=== PATIENT | male | born 1950 | race Caucasian/White ===

== ENCOUNTER → 2017-09-25 14:37 | Outpatient (CLI) | payer MEDICARE, OTHER, SELFPAY ==
--- NOTE | 2017-09-25 14:59 | XR_ITS ---
XR chest 2V HISTORY: ITS.REASON: DYSPNEA ON EXERTION, LYMPHADENOPATHY OF HEAD/NECK ORDERING PHYSICIAN: Seema Lopez PATIENT AGE: 67 years COMPARISON: None available FINDINGS: The cardiomediastinal silhouette and pulmonary vascularity are within normal limits. The lungs are clear without infiltrates, suspicious nodules, or pleural effusions. No acute bony abnormalities. IMPRESSION: Negative chest, no acute finding
[2017-09-25 15:03] LABS: Basophils % 0.5 % (0.1-2.0); Eosinophils # 0.1 K/mm3 (0.0-0.4); Eosinophils % 2.1 % (0.1-12.0); Hematocrit 45.7 % (42.0-52.0); Hemoglobin 15.1 g/dL (14.1-18.0); Lymphocytes # 1.1 K/mm3 (0.7-4.5); Lymphocytes % 17.5 K/mm3 (10-50); Mean Corpuscular Hemoglobin 27.8 pg (27.0-31.2); Mean Corpuscular Volume 84.3 fl (80-94); Monocytes # 0.6 K/mm3 (0.1-1.0); Monocytes % 9.5 % (1.7-9.3); Neutrophils # 4.4 K/mm3 (1.8-7.8); Neutrophils % 70.3 % (37.0-80.0); Platelet Count 269 K/mm3 (142-424); Red Blood Count 5.42 M/mm3 (4.60-6.20); Red Cell Distribution Width 12.5 % (11.5-17.5); White Blood Count 6.3 K/mm3 (4.8-10.8)
[2017-09-25 15:32] LABS: Alanine Aminotransferase 50 U/L (12-78); Albumin Level 4.2 gm/dL (3.4-5.0); Albumin/Globulin Ratio 1.2 (1.1-1.8); Alkaline Phosphatase 160 U/L (46-116); Anion Gap 13.2 mEq/L (5-15); Aspartate Amino Transferase 36 U/L (15-37); Bilirubin,Total 0.4 mg/dL (0.2-1.0); Blood Urea Nitrogen 25 mg/dL (7-18); Carbon Dioxide 26 mmol/L (21.0-32.0); Chloride 106 mmol/L (98-107); Chol/HDL Ratio 2.9 (1-3.5); Cholesterol 143 mg/dL (140-200); Creatinine,Serum 0.97 mg/dL (0.70-1.30); Estimated Glomerular Filt Rate 78 ml/min (>60); GFR (African American) 94 ML/MIN (>60); Globulin 3.5 gm/dl (1.3-3.2); Glucose 110 mg/dL (74-106); HDL Cholesterol 49 mg/dL (27-67); LDL Cholesterol 71 mg/dL (0-130); Potassium 4.2 mmoL/L (3.5-5.1); Sodium 141 mmol/L (136-145); Thyroid Stimulating Hormone 1.42 uIU/ml (0.358-3.740); Total Protein,Serum 7.7 gm/dL (6.4-8.2); Triglycerides 115 mg/dL (30-200); VLDL Cholesterol 23 mg/dL (0-40)
[2017-09-25 16:43] LABS: Erythrocyte Sedimentation Rate 6 mm/hr (0-20)
[2017-09-28 13:13] LABS: B. henselae IgG Negative titer (Neg:<1:320); B. henselae IgM Negative titer (Neg:<1:100); B. quintana IgG Negative titer (Neg:<1:320)
[2017-09-28 15:32] LABS: B. quintana IgM Negative titer (Neg:<1:100)
== END ==
PROVIDERS: PCP Internal Medicine Adolescent Medicine; Visit Provider Nurse Practitioner Family
DX: E11.9 Type 2 diabetes mellitus without complications (principal); R59.1 Generalized enlarged lymph nodes; R06.09 Other forms of dyspnea
CPT/HCPCS: 36415; 71046; 80053; 80061; 83036; 84443; 85025; 85651; 86611

== ENCOUNTER → 2018-01-29 07:44 | Outpatient (CLI) | payer MEDICARE, OTHER, SELFPAY ==
[2018-01-29 08:03] LABS: Creatinine,Urine Random 260 mg/dL (20-320)
[2018-01-29 08:17] LABS: Hemoglobin A1C 6.9 % (0.0-7.0)
[2018-01-29 08:55] LABS: Alanine Aminotransferase 59 U/L (12-78); Albumin Level 4.1 gm/dL (3.4-5.0); Albumin/Globulin Ratio 1.3 (1.1-1.8); Alkaline Phosphatase 134 U/L (46-116); Anion Gap 9.3 mEq/L (5-15); Aspartate Amino Transferase 29 U/L (15-37); Bilirubin,Total 0.8 mg/dL (0.2-1.0); Blood Urea Nitrogen 24 mg/dL (7-18); Calcium 8.8 mg/dL (8.5-10.1); Carbon Dioxide 31 mmol/L (21.0-32.0); Chloride 108 mmol/L (98-107); Chol/HDL Ratio 2.7 (1-3.5); Cholesterol 142 mg/dL (140-200); Creatinine,Serum 1.09 mg/dL (0.70-1.30); Estimated Glomerular Filt Rate 68 ml/min (>60); GFR (African American) 82 ML/MIN (>60); Globulin 3.1 gm/dl (1.3-3.2); Glucose 129 mg/dL (74-106); HDL Cholesterol 53 mg/dL (27-67); LDL Cholesterol 66 mg/dL (0-130); Potassium 4.3 mmoL/L (3.5-5.1); Sodium 144 mmol/L (136-145); Total Protein,Serum 7.2 gm/dL (6.4-8.2); Triglycerides 114 mg/dL (30-200); VLDL Cholesterol 23 mg/dL (0-40)
[2018-01-31 16:50] LABS: Microalbumin, Urine 176.2 ug/mL (Not Estab.)
== END ==
PROVIDERS: Visit Provider Internal Medicine Adolescent Medicine
DX: E11.9 Type 2 diabetes mellitus without complications (principal); E11.69 Type 2 diabetes mellitus with other specified complication
CPT/HCPCS: 36415; 80053; 80061; 82043; 82570; 83036

== ENCOUNTER → 2018-06-04 09:23 | Outpatient (CLI) | payer MEDICARE, OTHER, SELFPAY ==
[2018-06-04 11:26] LABS: Prostate Specific Ag Screen 4.1 ng/mL (0.0-4.0)
== END ==
PROVIDERS: Visit Provider Physician Assistant Medical
DX: Z12.5 Encounter for screening for malignant neoplasm of prostate (principal); R97.20 Elevated prostate specific antigen [PSA]
CPT/HCPCS: 36415; G0103

== ENCOUNTER → 2018-06-08 08:31 | Outpatient (CLI) | payer MEDICARE, OTHER, SELFPAY ==
[2018-06-08 09:35] LABS: Alanine Aminotransferase 66 U/L (12-78); Albumin/Globulin Ratio 1.3 (1.1-1.8); Alkaline Phosphatase 175 U/L (46-116); Anion Gap 13.6 mEq/L (5-15); Aspartate Amino Transferase 38 U/L (15-37); Bilirubin,Total 0.6 mg/dL (0.2-1.0); Blood Urea Nitrogen 15 mg/dL (7-18); Calcium 9.1 mg/dL (8.5-10.1); Carbon Dioxide 28 mmol/L (21.0-32.0); Chloride 104 mmol/L (98-107); Chol/HDL Ratio 3.2 (1-3.5); Cholesterol 158 mg/dL (140-200); Creatinine,Serum 0.99 mg/dL (0.70-1.30); Estimated Glomerular Filt Rate 76 ml/min (>60); GFR (African American) 92 ML/MIN (>60); Globulin 3.2 gm/dl (1.3-3.2); Glucose 152 mg/dL (74-106); HDL Cholesterol 50 mg/dL (27-67); LDL Cholesterol 81 mg/dL (0-130); Potassium 4.6 mmoL/L (3.5-5.1); Sodium 141 mmol/L (136-145); Total Protein,Serum 7.2 gm/dL (6.4-8.2); Triglycerides 136 mg/dL (30-200); VLDL Cholesterol 27 mg/dL (0-40)
[2018-06-08 17:39] LABS: Hemoglobin A1C 7.8 % (0.0-7.0)
== END ==
PROVIDERS: Visit Provider Internal Medicine Adolescent Medicine
DX: E11.9 Type 2 diabetes mellitus without complications (principal); E11.69 Type 2 diabetes mellitus with other specified complication
CPT/HCPCS: 36415; 80053; 80061; 83036

== ENCOUNTER → 2018-07-23 12:26 | Outpatient (POV) | payer MEDICARE, OTHER, SELFPAY | PROVIDERS: Visit Provider Nurse Practitioner Acute Care | DX: Z00.00 Encounter for general adult medical examination without abnormal findings (principal) ==

== ENCOUNTER → 2018-09-03 13:44 | Outpatient (POV) | payer MEDICARE, OTHER, SELFPAY | PROVIDERS: Visit Provider Nurse Practitioner Acute Care | DX: Z00.00 Encounter for general adult medical examination without abnormal findings (principal) ==

== ENCOUNTER → 2018-11-21 10:00 | Outpatient (CLI) | payer MEDICARE, OTHER, SELFPAY ==
--- NOTE | 2018-11-21 10:04 | CT_ITS ---
CT abdomen pelvis wo con CLINICAL INDICATION: ITS.REASON: UMBILLICAL HERNIA, RLQ PAIN ORDERING PHYSICIAN: Seema Lopez APRN PATIENT AGE: 68 years COMPARISON: None TECHNIQUE: Axial images obtained with sagittal and coronal reformats. All CT scans at the facility use one or more dose reduction, viz: automated exposure control, ma/kV adjustment per patient size (including targeted exams where dose is matched to indication, i.e. head), or iterative reconstruction technique. PROCEDURE: Oral Contrast: Redicat IV Contrast: None . FINDINGS: Patchy groundglass densities present in both lower lobes nonspecific and may be inflammatory or infectious. There is diffuse fatty liver infiltration. The gallbladder, spleen, adrenal glands, and pancreas have an unremarkable unenhanced CT appearance. There is a small exophytic hyperdensity along the upper pole the right kidney at 5 mm and may represent a small hyperdense cyst. No renal or ureteral calculi. There is a neck phytic isodensity projecting off the posterior aspect of the left kidney at 19 mm consistent with a cyst. No evidence of appendicitis. There are scattered diverticula within the colon. No evidence of diverticulitis. The prostate is enlarged at 6 x 4.6 cm. There are small bilateral fat-containing inguinal hernias and there is a small umbilical hernia containing fat. No acute bony anomalies are evident. IMPRESSION: 1. Small bilateral fat-containing inguinal hernias and a small umbilical hernia containing fat 2. Unremarkable appendix. No acute appearing renal or ureteral calculi. Probable hyperdense 5 mm right renal cyst and 19 mm left renal cyst 3. Enlarged prostate 4. Fatty liver 5. Patchy groundglass density in the lower lobes on both sides nonspecific and could be inflammatory or infectious. Interstitial lung disease is a consideration as well
== END ==
PROVIDERS: PCP Nurse Practitioner Family; Visit Provider Nurse Practitioner Family
DX: R10.31 Right lower quadrant pain (principal); K42.9 Umbilical hernia without obstruction or gangrene
CPT/HCPCS: 74176

== ENCOUNTER → 2019-04-09 07:33 | Outpatient (CLI) | payer MEDICARE, OTHER, SELFPAY ==
[2019-04-09 08:12] LABS: Basophils % 0.9 % (0.1-2.0); Eosinophils # 0.2 K/mm3 (0.0-0.4); Eosinophils % 4.1 % (0.1-12.0); Hematocrit 46.3 % (42.0-52.0); Hemoglobin 14.2 g/dL (14.1-18.0); Lymphocytes # 1.1 K/mm3 (0.7-4.5); Lymphocytes % 26.3 % (10-50); Mean Corpuscular HGB Conc 30.7 g/dL (31.8-35.4); Mean Corpuscular Hemoglobin 27.2 pg (27.0-31.2); Mean Corpuscular Volume 88.4 fl (80-94); Mean Platelet Volume 8.1 fl (7.4-10.4); Monocytes # 0.5 K/mm3 (0.1-1.0); Monocytes % 11.9 % (1.7-9.3); Neutrophils # 2.4 K/mm3 (1.8-7.8); Neutrophils % 56.8 % (37.0-80.0); Platelet Count 271 K/mm3 (142-424); Red Blood Count 5.23 M/mm3 (4.60-6.20); Red Cell Distribution Width 13.5 % (11.5-17.5); White Blood Count 4.2 K/mm3 (4.8-10.8)
[2019-04-09 09:17] LABS: Thyroid Stimulating Hormone 1.57 uIU/ml (0.358-3.740)
[2019-04-09 09:37] LABS: Alanine Aminotransferase 42 U/L (12-78); Albumin Level 4.1 gm/dL (3.4-5.0); Albumin/Globulin Ratio 1.3 (1.1-1.8); Alkaline Phosphatase 136 U/L (46-116); Anion Gap 12.7 mEq/L (5-15); Aspartate Amino Transferase 34 U/L (15-37); Bilirubin,Total 0.6 mg/dL (0.2-1.0); Blood Urea Nitrogen 26 mg/dL (7-18); Calcium 8.6 mg/dL (8.5-10.1); Carbon Dioxide 27 mmol/L (21.0-32.0); Chloride 104 mmol/L (98-107); Chol/HDL Ratio 2.5 (1-3.5); Cholesterol 124 mg/dL (140-200); Creatinine,Serum 0.87 mg/dL (0.70-1.30); Estimated Glomerular Filt Rate 88 ml/min (>60); GFR (African American) 106 ML/MIN (>60); Globulin 3.1 gm/dl (1.3-3.2); Glucose 109 mg/dL (74-106); HDL Cholesterol 50 mg/dL (27-67); LDL Cholesterol 52 mg/dL (0-130); Potassium 4.7 mmoL/L (3.5-5.1); Prostate Specific Ag, Diagnost 4.76 ng/mL (0.0-4.0); Sodium 139 mmol/L (136-145); Total Protein,Serum 7.2 gm/dL (6.4-8.2); Triglycerides 112 mg/dL (30-200); VLDL Cholesterol 22 mg/dL (0-40)
[2019-04-09 10:18] LABS: Hemoglobin A1C 6.9 % (0.0-7.0)
[2019-04-10 11:11] LABS: Creatinine, Urine 230.1 mg/dL (Not Estab.); Microalbumin, Urine 89.1 ug/mL (Not Estab.)
== END ==
PROVIDERS: Nurse Practitioner Family; Visit Provider Internal Medicine Adolescent Medicine
DX: E11.69 Type 2 diabetes mellitus with other specified complication (principal); E11.9 Type 2 diabetes mellitus without complications; N40.0 Benign prostatic hyperplasia without lower urinary tract symptoms
CPT/HCPCS: 36415; 80053; 80061; 82043; 82570; 83036; 84153; 84443; 85025

== ENCOUNTER → 2019-09-12 13:00 | Outpatient (CLI) | payer MEDICARE, OTHER, SELFPAY | PROVIDERS: Visit Provider Podiatrist | DX: L57.0 Actinic keratosis (principal); L84 Corns and callosities; L98.9 Disorder of the skin and subcutaneous tissue, unspecified | CPT/HCPCS: 87070; 87077; 87205 ==

== ENCOUNTER → 2019-10-10 08:21 | Outpatient (CLI) | payer MEDICARE, OTHER, SELFPAY ==
[2019-10-10 09:34] LABS: Basophils % 0.9 % (0.1-2.0); Eosinophils # 0.2 K/mm3 (0.0-0.4); Eosinophils % 3.8 % (0.1-12.0); Hematocrit 44.2 % (42.0-52.0); Hemoglobin 14.9 g/dL (14.1-18.0); Lymphocytes # 1.5 K/mm3 (0.7-4.5); Lymphocytes % 31.2 % (10-50); Mean Corpuscular HGB Conc 33.7 g/dL (31.8-35.4); Mean Corpuscular Hemoglobin 28.4 pg (27.0-31.2); Mean Corpuscular Volume 84.4 fl (80-94); Mean Platelet Volume 8.1 fl (7.4-10.4); Monocytes # 0.4 K/mm3 (0.1-1.0); Monocytes % 7.9 % (1.7-9.3); Neutrophils # 2.6 K/mm3 (1.8-7.8); Neutrophils % 56.1 % (37.0-80.0); Platelet Count 247 K/mm3 (142-424); Red Blood Count 5.23 M/mm3 (4.60-6.20); Red Cell Distribution Width 12.9 % (11.5-17.5); White Blood Count 4.6 K/mm3 (4.8-10.8)
[2019-10-10 10:37] LABS: Chloride 102 mmol/L (98-107); Potassium 4.3 mmoL/L (3.5-5.1); Sodium 137 mmol/L (136-145)
[2019-10-10 10:39] LABS: Alanine Aminotransferase 62 U/L (12-78); Albumin Level 4.2 g/dl (3.5-5.0); Albumin/Globulin Ratio 1.7 (1.1-1.8); Alkaline Phosphatase 139 U/L (38-126); Aspartate Amino Transferase 52 U/L (17-59); Bilirubin,Total 0.5 mg/dl (0.2-1.3); Blood Urea Nitrogen 24 mg/dl (9-20); Estimated Glomerular Filt Rate 84 ml/min (>60); GFR (African American) 102 ML/MIN (>60); Globulin 2.5 g/dL (1.3-3.2); Total Protein,Serum 6.7 g/dl (6.3-8.2)
[2019-10-10 10:40] LABS: Anion Gap 11.3 mEq/L (5-15); Calcium 9.4 mg/dl (8.4-10.2); Carbon Dioxide 28 mmol/L (22.0-30.0); Chol/HDL Ratio 2.4 (1-3.5); Cholesterol 130 mg/dl (140-200); Glucose 135 mg/dl (74-100); HDL Cholesterol 55 mg/dl (40-60); Triglycerides 104 mg/dl (30-150); VLDL Cholesterol 21 mg/dL (0-40)
[2019-10-10 10:51] LABS: Direct LDL Cholesterol 76.51 mg/dL (100-129)
[2019-10-10 11:11] LABS: Prostate Specific Ag Screen 3.9 ng/ml (0.0-4.0)
[2019-10-10 11:17] LABS: Hemoglobin A1C 6.7 % (4.0-6.0)
[2019-10-11 09:19] LABS: Creatinine, Urine 181.7 mg/dL (Not Estab.); Microalbumin, Urine 64.8 ug/mL (Not Estab.)
== END ==
PROVIDERS: Visit Provider Nurse Practitioner Family
DX: E11.69 Type 2 diabetes mellitus with other specified complication; N40.0 Benign prostatic hyperplasia without lower urinary tract symptoms; R97.20 Elevated prostate specific antigen [PSA]; Z12.5 Encounter for screening for malignant neoplasm of prostate; Z79.84 Long term (current) use of oral hypoglycemic drugs
CPT/HCPCS: 36415; 80053; 80061; 82043; 82570; 83036; 85025; G0103

== ENCOUNTER → 2020-01-14 07:58 | Outpatient (POV) | payer MEDICARE, OTHER, SELFPAY | PROVIDERS: PCP Internal Medicine Adolescent Medicine; Visit Provider Dermatology | DX: Z00.00 Encounter for general adult medical examination without abnormal findings (principal) ==

== ENCOUNTER → 2020-03-31 07:47 | Outpatient (CLI) | payer MEDICARE, OTHER, SELFPAY ==
[2020-03-31 08:56] LABS: Basophils % 0.8 % (0.1-2.0); Eosinophils # 0.2 K/mm3 (0.0-0.4); Hematocrit 47.9 % (42.0-52.0); Hemoglobin 15.5 g/dL (14.1-18.0); Lymphocytes # 1.5 K/mm3 (0.7-4.5); Lymphocytes % 32.5 % (10-50); Mean Corpuscular HGB Conc 32.5 g/dL (31.8-35.4); Mean Corpuscular Hemoglobin 28.7 pg (27.0-31.2); Mean Corpuscular Volume 88.5 fl (80-94); Mean Platelet Volume 7.9 fl (7.4-10.4); Monocytes # 0.4 K/mm3 (0.1-1.0); Monocytes % 8.7 % (1.7-9.3); Neutrophils # 2.5 K/mm3 (1.8-7.8); Neutrophils % 52.9 % (37.0-80.0); Platelet Count 239 K/mm3 (142-424); Red Blood Count 5.41 M/mm3 (4.60-6.20); Red Cell Distribution Width 12.5 % (11.5-17.5); White Blood Count 4.7 K/mm3 (4.8-10.8)
[2020-03-31 10:29] LABS: Alanine Aminotransferase 61 U/L (12-78); Albumin Level 4.4 g/dl (3.5-5.0); Albumin/Globulin Ratio 1.6 (1.1-1.8); Alkaline Phosphatase 150 U/L (38-126); Anion Gap 10.8 mEq/L (5-15); Aspartate Amino Transferase 49 U/L (17-59); Bilirubin,Total 0.6 mg/dl (0.2-1.3); Blood Urea Nitrogen 29 mg/dl (9-20); Calcium 9.9 mg/dl (8.4-10.2); Carbon Dioxide 31 mmol/L (22.0-30.0); Chloride 102 mmol/L (98-107); Chol/HDL Ratio 2.1 (1-3.5); Cholesterol 127 mg/dl (140-200); Estimated Glomerular Filt Rate 75 ml/min (>60); GFR (African American) 90 ML/MIN (>60); Globulin 2.7 g/dL (1.3-3.2); Glucose 121 mg/dl (74-100); HDL Cholesterol 60 mg/dl (40-60); Potassium 4.8 mmoL/L (3.5-5.1); Sodium 139 mmol/L (136-145); Total Protein,Serum 7.1 g/dl (6.3-8.2); Triglycerides 109 mg/dl (30-150); VLDL Cholesterol 22 mg/dL (0-40)
[2020-03-31 10:40] LABS: Direct LDL Cholesterol 62.32 mg/dL (100-129)
[2020-03-31 10:44] LABS: Hemoglobin A1C 7.1 % (4.0-6.0)
[2020-03-31 11:00] LABS: Prostate Specific Ag Screen 3.1 ng/ml (0.0-4.0)
[2020-03-31 14:02] LABS: Microalbumin/Creatinine Ratio 72.9
[2020-03-31 14:06] LABS: Creatinine,Urine Random 178 mg/dL (Not Estab.)
== END ==
PROVIDERS: Visit Provider Nurse Practitioner Family
DX: E11.9 Type 2 diabetes mellitus without complications (principal); E11.69 Type 2 diabetes mellitus with other specified complication; Z79.84 Long term (current) use of oral hypoglycemic drugs; R97.20 Elevated prostate specific antigen [PSA]; Z12.5 Encounter for screening for malignant neoplasm of prostate
CPT/HCPCS: 36415; 80053; 80061; 82043; 82570; 83036; 85025; G0103

== ENCOUNTER → 2020-07-21 07:54 | Outpatient (POV) | payer MEDICARE, OTHER, SELFPAY | PROVIDERS: Visit Provider Dermatology | DX: Z00.00 Encounter for general adult medical examination without abnormal findings (principal) ==

== ENCOUNTER → 2020-08-04 08:24 | Outpatient (CLI) | payer MEDICARE, OTHER, SELFPAY ==
[2020-08-04 09:19] LABS: Basophils % 0.6 % (0.1-2.0); Eosinophils # 0.2 K/mm3 (0.0-0.4); Eosinophils % 2.7 % (0.1-12.0); Hematocrit 49.4 % (42.0-52.0); Lymphocytes # 1.4 K/mm3 (0.7-4.5); Lymphocytes % 20.3 % (10-50); Mean Corpuscular HGB Conc 32.3 g/dL (31.8-35.4); Mean Corpuscular Hemoglobin 28.6 pg (27.0-31.2); Mean Corpuscular Volume 88.4 fl (80-94); Monocytes # 0.6 K/mm3 (0.1-1.0); Monocytes % 8.1 % (1.7-9.3); Neutrophils # 4.6 K/mm3 (1.8-7.8); Neutrophils % 68.3 % (37.0-80.0); Platelet Count 253 K/mm3 (142-424); Red Blood Count 5.58 M/mm3 (4.60-6.20); Red Cell Distribution Width 13.4 % (11.5-17.5); White Blood Count 6.8 K/mm3 (4.8-10.8)
[2020-08-04 09:26] LABS: Hemoglobin A1C 6.3 % (4.0-6.0)
[2020-08-04 12:27] LABS: Alanine Aminotransferase 36 U/L (12-78); Albumin Level 4.7 g/dl (3.5-5.0); Albumin/Globulin Ratio 1.7 (1.1-1.8); Alkaline Phosphatase 133 U/L (38-126); Anion Gap 9.7 mEq/L (5-15); Aspartate Amino Transferase 40 U/L (17-59); Bilirubin,Total 0.7 mg/dl (0.2-1.3); Blood Urea Nitrogen 27 mg/dl (9-20); Calcium 9.7 mg/dl (8.4-10.2); Carbon Dioxide 29 mmol/L (22.0-30.0); Chloride 105 mmol/L (98-107); Chol/HDL Ratio 2.2 (1-3.5); Cholesterol 141 mg/dl (140-200); Estimated Glomerular Filt Rate 74 ml/min (>60); GFR (African American) 90 ML/MIN (>60); Globulin 2.7 g/dL (1.3-3.2); Glucose 128 mg/dl (74-100); HDL Cholesterol 64 mg/dl (40-60); Potassium 4.7 mmoL/L (3.5-5.1); Sodium 139 mmol/L (136-145); Total Protein,Serum 7.4 g/dl (6.3-8.2); Triglycerides 109 mg/dl (30-150); VLDL Cholesterol 22 mg/dL (0-40)
[2020-08-04 12:38] LABS: Direct LDL Cholesterol 56.52 mg/dL (100-129)
[2020-08-04 12:59] LABS: Prostate Specific Ag Screen 3.4 ng/ml (0.0-4.0)
== END ==
PROVIDERS: Visit Provider Internal Medicine Adolescent Medicine
DX: E11.9 Type 2 diabetes mellitus without complications (principal); Z79.84 Long term (current) use of oral hypoglycemic drugs; Z12.5 Encounter for screening for malignant neoplasm of prostate
CPT/HCPCS: 36415; 80053; 80061; 83036; 85025; G0103

== ENCOUNTER → 2020-11-24 08:07 | Outpatient (POV) | payer MEDICARE, OTHER, SELFPAY | PROVIDERS: Visit Provider Dermatology | DX: Z00.00 Encounter for general adult medical examination without abnormal findings (principal) ==

== ENCOUNTER → 2021-01-26 07:04 | Outpatient (CLI) | payer MEDICARE, OTHER, SELFPAY ==
[2021-01-26 07:57] LABS: Basophils % 0.6 % (0.1-2.0); Eosinophils # 0.1 K/mm3 (0.0-0.4); Hematocrit 46.4 % (42.0-52.0); Hemoglobin 14.5 g/dL (14.1-18.0); Lymphocytes # 1.4 K/mm3 (0.7-4.5); Lymphocytes % 23.9 % (10-50); Mean Corpuscular HGB Conc 31.4 g/dL (31.8-35.4); Mean Corpuscular Hemoglobin 27.3 pg (27.0-31.2); Mean Corpuscular Volume 87.2 fl (80-94); Mean Platelet Volume 7.9 fl (7.4-10.4); Monocytes # 0.5 K/mm3 (0.1-1.0); Monocytes % 8.7 % (1.7-9.3); Neutrophils # 3.8 K/mm3 (1.8-7.8); Neutrophils % 64.8 % (37.0-80.0); Platelet Count 234 K/mm3 (142-424); Red Blood Count 5.32 M/mm3 (4.60-6.20); Red Cell Distribution Width 13.5 % (11.5-17.5); White Blood Count 5.8 K/mm3 (4.8-10.8)
[2021-01-26 08:32] LABS: Chloride 105 mmol/L (98-107)
[2021-01-26 08:33] LABS: Potassium 4.9 mmoL/L (3.5-5.1); Sodium 140 mmol/L (136-145)
[2021-01-26 08:35] LABS: Alanine Aminotransferase 40 U/L (12-78); Anion Gap 10.9 mEq/L (5-15); Aspartate Amino Transferase 41 U/L (17-59); Blood Urea Nitrogen 26 mg/dl (9-20); Carbon Dioxide 29 mmol/L (22.0-30.0); Estimated Glomerular Filt Rate 74 ml/min (>60); GFR (African American) 90 ML/MIN (>60)
[2021-01-26 08:36] LABS: Albumin Level 4.4 g/dl (3.5-5.0); Albumin/Globulin Ratio 1.7 (1.1-1.8); Alkaline Phosphatase 129 U/L (38-126); Bilirubin,Total 0.7 mg/dl (0.2-1.3); Calcium 9.2 mg/dl (8.4-10.2); Chol/HDL Ratio 2.7 (1-3.5); Cholesterol 175 mg/dl (140-200); Globulin 2.6 g/dL (1.3-3.2); Glucose 124 mg/dl (74-100); HDL Cholesterol 66 mg/dl (40-60); Triglycerides 113 mg/dl (30-150); VLDL Cholesterol 23 mg/dL (0-40)
[2021-01-26 08:42] LABS: Creatinine,Urine Random 181 mg/dL (Not Estab.); Microalbumin/Creatinine Ratio 40.3
[2021-01-26 08:49] LABS: Direct LDL Cholesterol 84.42 mg/dL (100-129)
[2021-01-26 09:10] LABS: Hemoglobin A1C 6.9 % (4.0-6.0)
== END ==
PROVIDERS: Visit Provider Nurse Practitioner Family
DX: E11.9 Type 2 diabetes mellitus without complications (principal); N40.0 Benign prostatic hyperplasia without lower urinary tract symptoms; Z79.84 Long term (current) use of oral hypoglycemic drugs
CPT/HCPCS: 36415; 80053; 80061; 82043; 82570; 83036; 85025

== ENCOUNTER → 2021-03-15 09:49 | Outpatient (CLI) | payer MEDICARE, OTHER, SELFPAY ==
--- NOTE | 2021-03-15 09:53 | XR_ITS ---
PROCEDURE: XR FOOT WT BEARING LT 3V CLINICAL INDICATION: toe injury COMPARISON: No exams were available for comparison FINDINGS: No fracture or dislocation. No lytic or blastic change. There is normal mineralization. Osteoarthritic changes are present. There is pes planus the small calcaneal spur noted osteoarthritic changes are present at the talonavicular joint. Bony hypertrophy versus ununited ossification center noted at the cuboid/5th metatarsal junction. Other findings:Small calcified Achilles enthesophyte IMPRESSION: Degenerative changes as described Dictated by: Rod Chavez MD 03/15/2021 14:01 Rod Chavez MD in [facility] 03/15/2021 14:01
== END ==
PROVIDERS: PCP Internal Medicine Adolescent Medicine; Visit Provider Podiatrist
DX: M79.673 Pain in unspecified foot (principal)
CPT/HCPCS: 73630

== ENCOUNTER → 2021-03-30 08:46 | Outpatient (POV) | payer MEDICARE, OTHER, SELFPAY | PROVIDERS: Visit Provider Dermatology | DX: Z00.00 Encounter for general adult medical examination without abnormal findings (principal) ==

== ENCOUNTER → 2021-07-16 07:10 | Outpatient (CLI) | payer MEDICARE, OTHER, SELFPAY ==
[2021-07-16 09:27] LABS: Alanine Aminotransferase 73 U/L (12-78); Albumin Level 4.4 g/dl (3.5-5.0); Alkaline Phosphatase 141 U/L (38-126); Anion Gap 11.3 mEq/L (5-15); Aspartate Amino Transferase 78 U/L (17-59); Bilirubin,Total 0.8 mg/dl (0.2-1.3); Blood Urea Nitrogen 17 mg/dl (9-20); Calcium 9.3 mg/dl (8.4-10.2); Carbon Dioxide 29 mmol/L (22.0-30.0); Chloride 101 mmol/L (98-107); Chol/HDL Ratio 2.7 (1-3.5); Cholesterol 133 mg/dl (140-200); Estimated Glomerular Filt Rate 96 ml/min (>60); GFR (African American) 116 ML/MIN (>60); Globulin 2.2 g/dL (1.3-3.2); Glucose 205 mg/dl (74-100); HDL Cholesterol 49 mg/dl (40-60); Potassium 4.3 mmoL/L (3.5-5.1); Sodium 137 mmol/L (136-145); Total Protein,Serum 6.6 g/dl (6.3-8.2); Triglycerides 127 mg/dl (30-150); VLDL Cholesterol 25 mg/dL (0-40)
[2021-07-16 09:57] LABS: Prostate Specific Ag Screen 3.8 ng/ml (0.0-4.0)
[2021-07-16 16:19] LABS: Hemoglobin A1C 9.8 % (4.0-6.0)
== END ==
PROVIDERS: Visit Provider Nurse Practitioner Family
DX: E11.69 Type 2 diabetes mellitus with other specified complication; Z12.5 Encounter for screening for malignant neoplasm of prostate; Z79.84 Long term (current) use of oral hypoglycemic drugs
CPT/HCPCS: 36415; 80053; 80061; 83036; G0103

== ENCOUNTER 2021-09-18 10:25 | Emergency (ER) | payer MEDICARE, OTHER, SELFPAY ==
[2021-09-18 10:26] VITALS: BP 126/68; PULSE 72; RESP 18; TEMP 37; O2SAT 98; BMI 32.3
--- NOTE | 2021-09-18 10:46 | XR_ITS ---
PROCEDURE INFORMATION: Exam: XR Left Hip Exam date and time: 09/18/2021 10:52 AM Age: 71 years old Clinical indication: Hip pain; Left hip; Additional info: Left hip pain/ no injury but trouble walking TECHNIQUE: Imaging protocol: XR Left hip. Views: 2 or 3 views hip with pelvis when performed. COMPARISON: ABDPELWO CT abdomen pelvis wo con 11/21/2018 10:21 AM FINDINGS: Bones/joints: Unremarkable. No acute fracture. Soft tissues: Unremarkable. IMPRESSION: No acute findings.
--- NOTE | 2021-09-18 10:49 | HMH.EDGENADL ---
ED Disposition Clinical Impression: Radiculopathy Qualifiers: Spinal region: lumbosacral Qualified Code(s): M54.17 - Radiculopathy, lumbosacral region Disposition: Home, Self-Care Condition on Discharge: Good Instructions: DI for Low Back Pain Prescriptions: Oxycodone HCl [Oxycodone 5mg tab (IR)] 5 mg PO Q6 PRN 2 Days #8 tab PRN Reason: Severe Pain Referrals: Todd Vidal MD [Primary Care Provider] - - Critical Care Critical Care Time: No Attestation: On 09/18/21, the high probability of a clinically significant, sudden or life threatening deterioration of the following system(s) required my full and direct attention, intervention and personal management. The time I documented below is in addition to time spent performing reported procedures but includes the following listed in this critical care notation. Medical Decision Making - Medical Records Medical records reviewed: Yes: I reviewed the patient's medical records. - Kyle Inquiry Pt receiving controlled substance: No Vital Signs: 09/18/21 10:26 Temperature 98.6 F Temperature Source Oral Pulse Rate [Brachial] 72 Respiratory Rate 18 Blood Pressure [Right Arm] 126/68 Blood Pressure Mean [Right Arm] 87 Blood Pressure Position [Right Arm] Sitting 02 Sat by Pulse Oximetry 98 Oxygen Delivery Method Room Air Orders (Tests/Meds): ED MEDICATIONS Discontinued Medications Generic Name Dose Route Start Last Admin Trade Name Freq PRN Reason Stop Dose Admin Acetaminophen 650 mg 09/18/21 10:48 09/18/21 11:14 Acetaminophen 500mg Tab PO 09/18/21 10:49 Not Given ONCE ONE Dexamethasone 10 mg 09/18/21 10:47 09/18/21 11:11 Dexamethasone 4mg Tablet PO 09/18/21 10:48 10 mg ONCE ONE Administration Ibuprofen 400 mg 09/18/21 10:48 09/18/21 11:14 Ibuprofen 400 Mg Tablet PO 09/18/21 10:49 Not Given ONCE ONE Oxycodone HCl 5 mg 09/18/21 10:47 09/18/21 11:13 Oxycodone 5mg Immediate Release Tablet PO 09/18/21 10:48 Not Given ONCE ONE Oxycodone/Acetaminophen 1 each 09/18/21 11:13 09/18/21 11:14 Oxycodone 5mg W/Apap 325mg Tablet PO 09/18/21 11:14 1 each ONCE ONE Administration - Radiology Data #1 Image(s): Hip Image Reviewed: Yes I reviewed the patient's radiology results, Yes I reviewed the patient's radiology image FINDINGS: Bones/joints: Unremarkable. No acute fracture. Soft tissues: Unremarkable. IMPRESSION: No acute findings. Medical Decision Narrative: 71-year-old male with past medical history of diabetes presenting to the ED with lower back pain, left leg pain. Differential diagnoses include vertebral fracture, sciatica, radiculopathy, herniated disc, skeletal pain, hip laxity. Given this work-up will include x-ray of the left hip, physical exam. Vital signs are currently stable. Labs are not currently indicated. Patient was given 10 mg oral Decadron, 5 mg oral oxycodone, Tylenol and Motrin for analgesia. He has a positive straight leg test which is consistent with sciatica/radiculopathy. No other red flag symptoms. Reassess after x-ray and medication administration. X-ray negative for acute osseous abnormality. Patient feels much better after being treated for his pain. At this point he is okay for discharge, will provide short course of oxycodone. Additionally instructed patient to take Tylenol Motrin, if he has persisting symptoms he will follow-up with his PCP or return to this ED. General Adult HPI - General Chief complaint: Back Pain/Injury Stated complaint: left leg pain Time Seen by Provider: 09/18/21 10:49 Mode of Arrival: Wheelchair Source of Information: Patient, Spouse Limitations: No Limitations Description of Symptoms (Recalled from ER Triage Doc. by RN): TO ED PER [facility] CAR WITH C/O LT SIDE BACK PAIN RADIATING DOWN LT LEG STARTING YESTERDAY. PT DENIES ANY KNOWN INJURY. PT DENIES ANY INCONTINENCE OF BOWEL OR BLADDER. - History of Present Illness HPI malka
--- NOTE | 2021-09-18 10:55 | PC.NURSE ---
Pt in room on bed, spouse in room
[2021-09-18 12:18] VITALS: BP 121/74; PULSE 75; RESP 16; TEMP 36.6; O2SAT 98
--- NOTE | 2021-09-18 13:30 | PC.NURSE ---
script had to be written on paper script, billy and pt both advised of this.
== END 2021-09-18 12:20 | disposition home or self-care (01) ==
PROVIDERS: Emergency Provider Emergency Medicine; PCP Internal Medicine Adolescent Medicine
DX: M54.17 Radiculopathy, lumbosacral region (principal); E11.9 Type 2 diabetes mellitus without complications; K21.9 Gastro-esophageal reflux disease without esophagitis; I10 Essential (primary) hypertension; E78.5 Hyperlipidemia, unspecified
CPT/HCPCS: 73502; 99283

== ENCOUNTER → 2021-09-20 11:45 | Outpatient (CLI) | payer MEDICARE, OTHER, SELFPAY ==
--- NOTE | 2021-09-20 11:51 | XR_ITS ---
FINAL REPORT CLINICAL HISTORY: LT SIDED SCIATICA FINDINGS: 4 views were obtained. There is no acute fracture. There is no malalignment. There is moderate disc space narrowing at L4-5 and L5-S1. IMPRESSION: Moderate disc space narrowing at L4-5 and L5-S1. Reviewed, Interpreted and Dictated by To Delgado MD Transcribed by Javed Lazaro Authenticated by To Delgado MD on 09/20/2021 02:30:[address] [facility]
== END ==
PROVIDERS: PCP Internal Medicine Adolescent Medicine; Visit Provider Nurse Practitioner Family
DX: M54.32 Sciatica, left side (principal)
CPT/HCPCS: 72110

== ENCOUNTER → 2021-09-27 16:33 | Outpatient (CLI) | payer MEDICARE, OTHER, SELFPAY ==
--- NOTE | 2021-09-27 16:36 | MR_ITS ---
PROCEDURE INFORMATION: Exam: MR Lumbar Spine Without Contrast Exam date and time: 09/27/2021 4:52 PM Age: 71 years old Clinical indication: Low back pain; Additional info: Acute lt sided low back pain, lt sided sciatica. Lt sided lbp with lt leg pain to ankle. Symptoms x1wk. No injury or trauma. TECHNIQUE: Imaging protocol: Multiplanar magnetic resonance images of the lumbar spine without intravenous contrast. COMPARISON: CR XR LUMBAR SPINE MIN 4V 09/20/2021 12:10 PM FINDINGS: Prominent extrarenal pelvis on the right. Renal cyst on the left. alignment is grossly normal. signal intensity within the bone marrow is normal. conus terminates at the mid aspect of L1. Soft tissues are unremarkable. Mild annular disc bulge and/or disc protrusions L3-L4 through L5-S1 Reactive degenerative endplate changes L4 and L5 No marrow edema Neural foraminal narrowing L3-L4 T12-L1: Central canal and neural foramina are widely patent. L1-L2: Central canal and neural foramina are widely patent. L2-L3: Broad-based annular disc bulge effaces the anterior aspect of the thecal sac mildly so. Central canal and neural foramina are widely patent. L3-L4: Broad-based annular disc bulge with a left paracentral and lateral disc protrusion. Disc is adjacent to the anterior L4 nerve roots. Central canal and right neural foramina are patent. Soft tissue prominence within the left neural foramina possibly a nerve root lesion or bifid nerve root. Follow-up with fat saturated T1 weighted sequences pre and post contrast. L4-L5: Broad-based annular disc bulge lateralizing to the right greater than left. Narrowing of the right neural foramina inferiorly. Disc is adjacent to the anterior L5 nerve roots within the anterolateral recess. L5-S1: Broad-based annular disc bulge lateralizing to the left greater than right. Paucity of fat about the L5 nerve root laterally on the left. IMPRESSION: Degenerative disc disease as described above. Soft tissue prominence within the left neural foramina possibly a nerve root lesion or bifid nerve root. Follow-up with fat saturated T1 weighted sequences pre and post contrast.
== END ==
PROVIDERS: PCP Internal Medicine Adolescent Medicine; Visit Provider Nurse Practitioner Family
DX: M54.42 Lumbago with sciatica, left side (principal)
CPT/HCPCS: 72148; 76376

== ENCOUNTER → 2021-10-01 08:12 | Outpatient (CLI) | payer MEDICARE, OTHER, SELFPAY ==
[2021-10-01 09:47] LABS: Blood Urea Nitrogen 22 mg/dl (9-20); Estimated Glomerular Filt Rate 84 ml/min (>60); GFR (African American) 101 ML/MIN (>60)
== END ==
PROVIDERS: Visit Provider Nurse Practitioner Family
DX: M54.42 Lumbago with sciatica, left side (principal)
CPT/HCPCS: 36415; 82565; 84520

== ENCOUNTER → 2021-10-08 07:56 | Outpatient (CLI) | payer MEDICARE, OTHER, SELFPAY ==
--- NOTE | 2021-10-08 08:01 | MR_ITS ---
FINAL REPORT CLINICAL HISTORY: ACUTE LEFT SIDED LOW BACK PAIN NUMBNESS IN LEG FROM KNEE TO ANKLE , NO INJURY / TRAUMA , NO SURGERY 20 ML OF PROHANCE GIVEN COMPARISON: 09/27/2021 FINDINGS: Multiplanar MR imaging of the lumbar spine was performed without and with contrast. On the sagittal T2-weighted images, disc degeneration is seen at multiple levels. There is mild retrolisthesis of L3 on 4. There are endplate changes at several levels. There is no evidence of fracture. The conus is seen at approximately the L1 level and has an unremarkable appearance. L1-2: An annular bulge is present. No significant canal stenosis or neuroforaminal narrowing is seen. L2-3: An annular bulge is present. There is mild right neural foraminal narrowing. L3-4: An annular bulge is present. There is new left foraminal soft tissue extending superiorly measuring 2.5 cm in height with peripheral contrast enhancement, favor sequestered disc fragment or hematoma over other etiologies. There is mild right and moderate left neural foraminal narrowing. L4-5: An annular bulge is present. Facet arthropathy and osteophytes are present. There is moderate right and mild left neural foraminal narrowing. L5-S1: An annular bulge is present. Facet arthropathy and osteophytes are present. There is a central disc protrusion which contacts the S1 nerve roots. There is mild bilateral neural foraminal narrowing. IMPRESSION: Multilevel mild degenerative disc disease and spondylosis with areas of neural foraminal narrowing as described. New left foraminal soft tissue at L3-4, favor to represent a sequestered disc fragment or hematoma over other etiologies. Follow-up MRI may be helpful. Central disc protrusion at L5-S1 contacts the S1 nerve roots. Reviewed, Interpreted and Dictated by Eddie Coleman III, MD Transcribed by Terese Johnson Authenticated by Eddie Coleman III, MD on 10/08/2021 11:11:49 AM [facility]
== END ==
PROVIDERS: PCP Internal Medicine Adolescent Medicine; Visit Provider Nurse Practitioner Family
DX: M54.42 Lumbago with sciatica, left side (principal)
CPT/HCPCS: 72158; 76376; A9576

== ENCOUNTER → 2021-12-14 08:10 | Outpatient (POV) | payer MEDICARE, OTHER, SELFPAY | PROVIDERS: Visit Provider Dermatology | DX: Z00.00 Encounter for general adult medical examination without abnormal findings (principal) ==

== ENCOUNTER → 2022-06-03 13:36 | Outpatient (CLI) | payer MEDICARE, OTHER, SELFPAY ==
--- NOTE | 2022-06-03 13:40 | US_ITS ---
FINAL REPORT TECHNIQUE: Real-time grayscale and color ultrasound of the soft tissues of the neck was performed. CLINICAL HISTORY: CERVICAL ADENOPATHY FINDINGS: Ultrasound images of the soft tissues of the neck were obtained. No mass or fluid collection identified at the area of interest. No significant adenopathy is seen. IMPRESSION: No mass or fluid collection at the area of interest. Reviewed, Interpreted and Dictated by To Delgado MD Transcribed by Javed Lazaro Authenticated and [facility]
== END ==
PROVIDERS: PCP Internal Medicine Adolescent Medicine; Visit Provider Nurse Practitioner Family
DX: R59.0 Localized enlarged lymph nodes (principal)
CPT/HCPCS: 76536

== ENCOUNTER → 2022-12-21 14:26 | Outpatient (CLI) | payer MEDICARE, OTHER, SELFPAY | PROVIDERS: PCP Internal Medicine Adolescent Medicine; Visit Provider Specialist | DX: G47.33 Obstructive sleep apnea (adult) (pediatric) (principal); R06.83 Snoring | CPT/HCPCS: G0399 ==

== ENCOUNTER → 2023-05-30 10:36 | Outpatient (POV) | payer MEDICARE, OTHER, SELFPAY | PROVIDERS: PCP Internal Medicine Adolescent Medicine; Visit Provider Dermatology | DX: Z00.00 Encounter for general adult medical examination without abnormal findings (principal) ==

== ENCOUNTER 2023-08-01 08:55 | Outpatient (POV) | payer MEDICARE, OTHER, SELFPAY | END 2023-08-01 23:59 | disposition home or self-care (01) | LOC: SC 08:56 | PROVIDERS: PCP Internal Medicine Adolescent Medicine; Visit Provider Dermatology | DX: Z00.00 Encounter for general adult medical examination without abnormal findings (principal) ==

== ENCOUNTER 2024-02-11 08:06 | Emergency (ER) | payer MEDICARE, OTHER, SELFPAY ==
[2024-02-11 08:20] VITALS: BP 104/88; PULSE 64; RESP 20; TEMP 36.7; O2SAT 96; BMI 32.3
--- NOTE | 2024-02-11 08:30 | EXP.UTC ---
Discharge Plan Disposition Patient Disposition: Home, Self-Care Condition: Good Prescriptions Prescriptions: New methylprednisolone 4 mg Tablets,Dose Pack 4 mg PO DIRECTED 6 Days Qty: 21 0RF Rx Instructions: Take 1 pack as directed for 6 days guaifenesin [Mucinex] 600 mg tablet extended release 12hr 600 - 1,200 mg PO BIDP PRN (Reason: Congestion) Qty: 30 0RF Paxlovid 300 mg (150 mg x 2)-100 mg tablets,dose pack See Rx Instructions .ROUTE .COMPLEX Qty: 30 0RF Rx Instructions: take TWO 150 mg tablets of nirmatrelvir with ONE 100 mg tablet of ritonavir twice daily for 5 days No Action atorvastatin 20 mg tablet 20 mg PO DAILY Patient Comments: TAKE 1 TABLET BY MOUTH ONCE DAILY FOR 90 DAYS citalopram 40 mg tablet 40 mg PO DAILY Patient Comments: TAKE 1 TABLET BY MOUTH ONCE DAILY metformin 1,000 mg tablet 1,000 mg PO BID Patient Comments: TAKE 1 TABLET BY MOUTH TWICE DAILY diclofenac sodium 75 mg tablet,delayed release (DR/EC) 75 mg PO DAILY lisinopril 5 mg tablet 5 mg PO DAILY Patient Comments: TAKE 1 TABLET BY MOUTH ONCE DAILY Jardiance 25 mg tablet 25 mg PO DAILY Patient Comments: TAKE 1 TABLET BY MOUTH ONCE DAILY IN THE MORNING FOR 90 DAYS Referrals Follow up/Referrals: Todd Vidal MD [Primary Care Provider] - See instructions Activity Restrictions/Add. Instructions Additional Instructions/Restrictions: Drink plenty of fluids. Take tylenol for pain or fever. Take the medications as directed. Follow up with your regular doctor. GO TO THE ER FOR ANY WORSENING SYMPTOMS Clinical Impressions Clinical Impression: COVID-19 Instructions Patient Instructions: Coronavirus Disease 2019, Preventing the Spread of Coronavirus Discharge Instructions Print Language Print Language: Chadian Discharge ED Provider: Donald Bernardo [facility] General Stated complaint: covid, fever, body aches Time Seen by Provider: 02/11/24 08:30 History of Present Illness Provider Complaint: He states that has tested positive on a home covid-19 test. He came in today to ask to be prescribed paxlovid. He denies shortness of breath. Related Data Home Medications ?Medication ?Instructions ?Recorded ?Confirmed atorvastatin 20 mg tablet 20 mg PO DAILY 02/11/24 02/11/24 citalopram 40 mg tablet 40 mg PO DAILY 02/11/24 02/11/24 diclofenac sodium 75 mg 75 mg PO DAILY 02/11/24 02/11/24 tablet,delayed release empagliflozin 25 mg tablet 25 mg PO DAILY 02/11/24 02/11/24 (Jardiance) lisinopril 5 mg tablet 5 mg PO DAILY 02/11/24 02/11/24 metformin 1,000 mg tablet 1,000 mg PO BID 02/11/24 02/11/24 Previous Rx's ?Medication ?Instructions ?Recorded guaifenesin 600 mg tablet, 600 - 1,200 mg (1 - 2 x 600 mg) PO 02/11/24 extended release 12 hr (Mucinex) BIDP PRN Congestion #30 tabs methylprednisolone 4 mg tablets in 4 mg PO DIRECTED 6 days #21 tabs 02/11/24 a dose pack nirmatrelvir 300 mg (150 mg See Rx Instructions PO .COMPLEX 02/11/24 x2)-ritonavir 100 mg tablet,dose #30 tabs pack (Paxlovid) Allergies Allergy/AdvReac Type Severity Reaction Status Date / Time No Known Allergies Allergy Verified 06/21/23 07:34 [facility] Disclaimer: The information contained in this section may have been updated after the patient was seen, as this information can be updated by other users. Social History Smoking Status: Never smoker alcohol intake: never substance use type: denies use current occupational status: retired Travel in the last 8 weeks: None household members: family housing: house marital status: ROS Obtained: Yes All systems reviewed & no additional complaints except as documented Constitutional Constitutional: Reports poor appetite Eyes Eyes: Reports system reviewed and no additional complaints, except as documented ENT Ears, Nose, Mouth, and Throat: Reports as per HPI Cardiovascular Cardiovascular: Reports system reviewed and no additional complaints, except as documented and Denies chest pain Respiratory Respiratory: Denies shortness of breath, Denies chest congestion, Reports cough, Denies stridor and Denies wheezing Gastrointestinal Gastrointestingal: Reports system reviewed and no additional complaints, except as documented; Denies abdominal pain, diarrhea or vomiting Musculoskeletal Musculoskeletal: Reports system reviewed and no additional complaints, except as documented and Denies arthralgias Integumentary/Breasts Skin/Breast: Reports system reviewed and no additional complaints, except as documented and Denies rash Neurologic Neurologic: Denies paresthesias Allergic/Immunologic Allergic/Immunologic: Denies wheezing Physical Exam General General appearance: alert and in no apparent distress Eye Eye exam: Present normal appearance, PERRL and EOMI ENT ENT exam: Present mucous membranes moist and normal external ear exam Expanded ENT Exam External ear exam: Present normal external inspection TM/Canal exam: Bilateral TM: erythema and bulging Nose exam: Absent sinus tenderness Nasal speculum exam: Bilateral: normal Mouth exam: Present normal external inspection; Absent drooling Teeth exam: Present normal inspection Throat exam: Present tonsillar erythema and tonsillomegaly Neck Neck exam: Present normal inspection, full ROM and trachea midline; Absent tenderness, lymphadenopathy or thyromegaly Chest Chest inspection: Present normal inspection and symmetric chest wall rise; Absent tenderness or rash Respiratory Respiratory exam: Present normal lung sounds bilaterally; Absent respiratory distress, wheezes, stridor or accessory muscle use Cardiovascular Cardiovascular exam: Present regular rate, normal rhythm and normal heart sounds Abdominal Exam Abdominal exam: Present soft; Absent distention, tenderness, guarding, rebound or rigidity Extremities Exam Extremities exam: Present normal inspection, full ROM and normal capillary refill; Absent tenderness or calf tenderness Back Exam Back exam: Present normal inspection and full ROM; Absent tenderness Neurological Exam Neurological exam: Present alert and oriented X3 Psychiatric Psychiatric exam: Present normal affect and normal mood Skin Skin exam: Present warm, dry, intact and normal color Lymphatic Lymphatic Findings: no adenopathy Medical Decision Making Medical Records Medical records reviewed: No I reviewed the patient's medical records. Kyle Inquiry Pt receiving controlled substance: No Lab Data Lab results reviewed: Yes I reviewed the patient's lab results.
[2024-02-11 08:44] VITALS: BP 104/88; PULSE 64; RESP 20; TEMP 36.7; O2SAT 96
== END 2024-02-11 08:47 | disposition home or self-care (01) ==
PROVIDERS: Emergency Provider Nurse Practitioner Family; PCP Internal Medicine Adolescent Medicine
DX: U07.1 COVID-19 (principal); R50.9 Fever, unspecified
CPT/HCPCS: 99204; 99212; G0463

== ENCOUNTER 2024-05-07 10:40 | Outpatient (POV) | payer MEDICARE, OTHER, SELFPAY | END 2024-05-07 23:59 | disposition home or self-care (01) | LOC: SC 05-08 08:07 | PROVIDERS: Visit Provider Dermatology | DX: Z00.00 Encounter for general adult medical examination without abnormal findings (principal) ==

== ENCOUNTER 2024-06-18 20:36 | Emergency (ER) | payer MEDICARE, OTHER, SELFPAY ==
[2024-06-18 20:46] VITALS: BP 140/77; PULSE 80; RESP 20; TEMP 36.7; O2SAT 93; BMI 32.3
--- NOTE | 2024-06-18 21:13 | PC.NURSE ---
Attempted to cath patent with 20 coude catheter with no success.
--- NOTE | 2024-06-18 21:17 | PC.NURSE ---
Called transfer center, speaking with transfer center at this time.
--- NOTE | 2024-06-18 21:28 | ED_ITS ---
Discharge Plan Disposition Patient Disposition: Xfer Short-Term Hosp Chief Complaint: Abdominal Pain Prescriptions Prescriptions: No Action citalopram 40 mg tablet 40 mg PO DAILY methylprednisolone 4 mg Tablets,Dose Pack 4 mg PO DIRECTED 6 Days Qty: 21 0RF Rx Instructions: Take 1 pack as directed for 6 days atorvastatin 20 mg tablet 20 mg PO DAILY Patient Comments: TAKE 1 TABLET BY MOUTH ONCE DAILY FOR 90 DAYS citalopram 40 mg tablet 40 mg PO DAILY Patient Comments: TAKE 1 TABLET BY MOUTH ONCE DAILY diclofenac sodium 75 mg tablet,delayed release (DR/EC) 75 mg PO DAILY lisinopril 5 mg tablet 5 mg PO DAILY Patient Comments: TAKE 1 TABLET BY MOUTH ONCE DAILY Jardiance 25 mg tablet 25 mg PO DAILY Patient Comments: TAKE 1 TABLET BY MOUTH ONCE DAILY IN THE MORNING FOR 90 DAYS Referrals Follow up/Referrals: Todd Vidal MD [Primary Care Provider] - See instructions Clinical Impressions Clinical Impression: Acute urinary retention Instructions Patient Instructions: DI for Acute Abdominal Pain Print Language Print Language: South African Discharge ED Provider: Domingo Wills General Adult HPI General Chief complaint: Abdominal Pain Stated complaint: bladder surgery Time Seen by Provider: 06/18/24 20:47 Mode of Arrival: Wheelchair Source of Information: Patient Limitations: No Limitations Description of Symptoms (Recalled from ER Triage Doc. by RN): urinary retention after surgery today History of Present Illness HPI narrative: Please note that above description of symptoms, in this electronic medical record under categorization of recalled from ER triage doctor by RN are reflective of an initial nursing assessment, however, is not reflective of my full history and physical exam that was personally taken and clarified. Consequentially, this preceding description of symptoms, which may include the patient's categorized chief complaint in the EMR, do not reflect my personal clinical impression, and the ultimate description of history of present illness and patient stated complaints should be deferred to this section of the note. Unless stated otherwise or congruent with this section of the note, additional signs, symptoms, or incongruence should be interpreted as inaccurate with my clinical impression. Related Data Home Medications ?Medication ?Instructions ?Recorded ?Confirmed atorvastatin 20 mg tablet 20 mg PO DAILY 02/11/24 02/11/24 citalopram 40 mg tablet 40 mg PO DAILY 02/11/24 02/11/24 diclofenac sodium 75 mg 75 mg PO DAILY 02/11/24 02/11/24 tablet,delayed release empagliflozin 25 mg tablet 25 mg PO DAILY 02/11/24 02/11/24 (Jardiance) lisinopril 5 mg tablet 5 mg PO DAILY 02/11/24 02/11/24 citalopram 40 mg tablet 40 mg PO DAILY 06/18/24 06/18/24 Previous Rx's ?Medication ?Instructions ?Recorded methylprednisolone 4 mg tablets in 4 mg PO DIRECTED 6 days #21 tabs 02/11/24 a dose pack Allergies Allergy/AdvReac Type Severity Reaction Status Date / Time No Known Allergies Allergy Verified 06/21/23 07:34 [facility] Disclaimer: The information contained in this section may have been updated after the patient was seen, as this information can be updated by other users. Social History Smoking Status: Never smoker alcohol intake: never substance use type: denies use current occupational status: retired Travel in the last 8 weeks: None household members: family housing: house marital status: Have you lived/traveled outside US in past 30 days?: No Contact w/someone who lives/traveled outside US past 30 days?: No Exposure to someone with infectious disease in past 14 days?: No Do you have a fever (greater than 100.4 F or 38 C)?: No Have you tested positive for COVID-19: No Exposed to someone with COVID-19 in past 14 days?: No Do you have a sore throat?: No Do you have a cough?: No Do you have any weakness?: No Do you have any diarrhea?: No Are you experiencing any unusual bleeding?: No Do you have any muscle aches/pain?: No Do you have any abdominal pain?: No Are you experiencing loss of taste or smell?: No Other Medical History Have you received the Flu Vaccine for this season: Yes Have you received the Pneumonia Vaccine: Yes ROS Obtained: Yes All systems reviewed & no additional complaints except as documented Physical Exam General General appearance: alert Head Head exam: atraumatic and normocephalic Eye Eye exam: Present normal appearance, PERRL and EOMI Neck Neck exam: Present normal inspection, full ROM and trachea midline Respiratory Respiratory exam: Absent respiratory distress, wheezes, stridor, accessory muscle use or prolonged expiratory phase Cardiovascular Cardiovascular exam: Present other (Pulses equal symmetric in upper and lower extremities) Abdominal Exam Abdominal exam: Present soft; Absent distention, tenderness or pulsatile mass Extremities Exam Extremities exam: Absent edema Neurological Exam Neurological exam: Present alert, oriented X3 and CN II-XII intact; Absent motor sensory deficit Skin Skin exam: Present warm and dry; Absent diaphoresis or erythema Medical Decision Making Medical Records Medical records reviewed: Yes I reviewed the patient's medical records. Screening: Per USPSTF and CDC recommendations, given the prevalence of disease in our region, it is our hospital?s policy to screen for HIV and viral Hepatitis for all patients aged 18 and over and those with ongoing risk factors. Kyle Inquiry Pt receiving controlled substance: No Kyle was queried for this patient: No Vital Signs: 06/18/24 20:46 Temperature 98.0 F Temperature Source Oral Pulse Rate [Right Brachial] 80 Respiratory Rate 20 Blood Pressure [Right Arm] 140/77 Blood Pressure Mean [Right Arm] 98 Blood Pressure Source [Right Arm] Automatic Cuff Blood Pressure Position [Right Arm] Supine 02 Sat by Pulse Oximetry 93 L Oxygen Delivery Method Room Air Orders (Tests/Meds): ORDERS Category Date Time Status HIV (1&2) Antibody Rapid Stat Lab 06/18/24 20:49 Ordered Hep C Ab with Reflex to RNA Stat Lab 06/18/24 20:49 Ordered Medical Decision Narrative: 74-year-old male history of diabetes, recent urinary instrumentation today, 06/18 at presenting with inability to catheterize. Patient states that he was supposed to leave his catheter in until , 06/20. Took it out because he thought he would be able to self catheterize as he has done in the past. Unable to self catheterize. Last time he was able to fully empty his bladder was just before arrival before pulling catheter and trying to self cath. No other symptoms. History obtained the patient and . On arrival, well- appearing. Bladder scan with 4 to 5 mL of urine in the bladder. Abdomen soft, nontender. He does have a little blood at the meatus. Attempted passing coud? catheter, unable to do so. Because of this and concern for false tract forming with repeated attempts, urology was contacted at [facility]. Graciously excepted transfer to [facility]. Because patient high risk for clinical decompensation if discharged, deemed appropriate for transfer and inpatient admission. Results were relayed to patient who voiced understanding and patient was agreeable to transfer, inpatient admission, and management. Patient was graciously accepted and transferred to for further definitive management, under Dr. Seth. Ehs Manager disclaimer Much of this encounter note is an electronic systems protection technician spoken language to printed text. Electronic systems protection technician of the spoken language may permit errors. Although I have reviewed the note, some errors may still exist. Critical Care Critical Care Time Critical Care Time: No
--- NOTE | 2024-06-18 21:33 | PC.NURSE ---
pt accepted to [facility]
[2024-06-18 22:40] VITALS: BP 150/94; PULSE 76; RESP 18; TEMP 36.7; O2SAT 94
== END 2024-06-18 22:30 | disposition short-term general hospital (02) ==
PROVIDERS: Emergency Provider Emergency Medicine; PCP Internal Medicine Adolescent Medicine
DX: R33.8 Other retention of urine (principal); R10.9 Unspecified abdominal pain
CPT/HCPCS: 99283

== ENCOUNTER 2025-01-06 10:49 | Outpatient (CLI) | payer MEDICARE, OTHER, SELFPAY ==
--- OUTSIDE RECORDS SUMMARY | 2024-10-05 17:30 | XMS_ITS ---
Author Organization [facility]JAY[place] Address [address] [place] [address] Care Team Providers Care Sand Polisher Name Role Phone Todd Vidal Primary Care Provider Migration, Provider Unavailable Unavailable REASON FOR VISIT [facility] To [facility] Conversion Encounter Medications Medication SIG (Take, Route, Frequency, Duration) Notes Start Date End Date Status Tamsulosin HCl 0.4 MG 1 cap(s) orally once a day; Duration: 30 day(s) 07/02/2024 Active Nitrofurantoin Macrocrystal 100 MG 1 cap(s) orally 2 times a day; Duration: 7 days 07/02/2024 Active Jardiance 25 MG 1 tab(s) orally once a day (in the morning); Duration: 90 days Active Citalopram Hydrobromide 40 MG 1 tab(s) orally once a day; Duration: 90 days Active Potassium 99 TAKE 1 TABLET ORAL ONCE A DAY; Duration: 30 DAYS *Please review and pick correct strength-formulati on from [facility] options. If intended option is not shown, discontinue and re-order from Quick Search* 06/04/2024 Active Lisinopril 5 MG 1 tab(s) orally once a day; Duration: 90 days Active ALBUTEROL (EQV-PROVENTIL HFA) 90 MCG/INH 2 PUFF(S) INHALED EVERY 6 HOURS NEEDED FOR SHORTNESS OF BREATH; Duration: 30 DAYS *Please review for potential replacement for e-prescription and drug interaction check* 02/22/2024 Active metFORMIN HCl 1000 MG 1 tab(s) orally 2 times a day; Duration: 90 days Active Cyclobenzaprine HCl 10 MG 1 tab(s) orally 2 times a day as needed for muscle spasm; Duration: 14 days Active Magnesium 400MG 1 TABLET ONCE A DAY *Please review and pick correct [facility]ulati [facility]. If intended option is not shown, discontinue and re-order from Quick Search* 06/04/2024 Active Diclofenac Sodium 75 MG 1 tab(s) orally 2 times a day Active ZyrTEC Allergy 10 MG 1 tab(s) orally qd Active Multivitamin MULTIPLE VITAMINS 1 CAP(S) ORALLY ONCE A DAY *Please review and pick correct [facility]ati [facility]. If intended option is not shown, discontinue and re-order from Quick Search* Active Atorvastatin Calcium 20 MG 1 tab(s) orally once a day; Duration: 90 days Active GLUCOMETER NA - ONCE A DAY DIRECTED *Please review for potential replacement for e-prescription and drug interaction check* 08/16/2021 Active Encounters Encounter Location Date Provider Diagnosis [facility] [place] [address] [facility] [address] [place] [address] 10/05/2024 Provider Migration Plan Of Treatment Medication Medication Name Sig Start Date Stop Date Notes Lisinopril 5 MG 1 tab(s) orally once a day; Duration: 90 days Atorvastatin Calcium 20 MG 1 tab(s) oral ly once a day; Duration: 90 days Progress Notes * Javier WEST WDOB: 2 (74 yo M)Acc No.[id number]:10/05/2024 Patient: Marielle SHARPE Javier W Provider: Harry lindsay Migration :1950 A ge:74 Y S ex:Male Date:10/05/2024 Address:[facility] [id number] Pcp:Todd Vidal Subjective: * Chief Complaints: * 1 . [facility]. * Medical History: * Medications: T aking Diclofenac Sodium 75 MG Tablet Delayed Release 1 tab(s) orally 2 times a day , Taking ZyrTEC Allergy 10 MG Tablet 1 tab(s) orally qd , Taking Multivitamin MULTIPLE VITAMINS CAPSULE 1 CAP(S) ORALLY ONCE A DAY , Notes to Pharmacist: *Please review and pick correct strength-formulation from [facility] options. If intended option is not shown, discontinue and re-order from Quick Search*, Taking GLUCOMETER NA PER INSURANCE COVERAGE - ONCE A DAY DIRECTED , Notes to Pharmacist: *Please review for potential replacement for e-prescription and drug interaction check*, Taking ALBUTEROL (EQV-PROVENTIL HFA) 90 MCG/INH AEROSOL 2 PUFF(S) INHALED EVERY 6 HOURS NEEDED FOR SHORTNESS OF BREATH , Notes to Pharmacist: *Please review for potential replacement for e-prescription and drug interaction check*, Taking metFORMIN HCl 1000 MG Tablet 1 tab(s) orally 2 times a day , Taking Cyclobenzaprine HCl 10 MG Tablet 1 tab(s) orally 2 times a day as needed for muscle spasm , Taking Magnesium 400MG 1 TABLET ONCE A DAY , Notes to Pharmacist: *Please review and pick correct strength-formulation from [facility] options. If intended option is not shown, discontinue and re-order from Quick Search*, Taking Potassium 99 OTC TAKE 1 TABLET ORAL ONCE A DAY , Notes to Pharmacist: *Please review and pick correct strength-formulation from [facility] options. If intended option is not shown, discontinue and re-order from Quick Search*, Taking Tamsulosin HCl 0.4 MG Capsule 1 cap(s) orally once a day , Taking Nitrofurantoin Macrocrystal 100 MG Capsule 1 cap(s) orally 2 times a day , Taking Jardiance 25 MG Tablet 1 tab(s) orally once a day (in the morning) , Taking Citalopram Hydrobromide 40 MG Tablet 1 tab(s) orally once a day Objective: * Vitals: Assessment: Plan: * Treatment: * * Electronic signature of Prov ider Migration on 01/06/2025 at 11:18 AM EDT Sign off status: Pending * Provider: Harry lindsay Migration Date: 0 10/05/2024 Generated for Jasmin bobby/Avelino/Ruthann on: 01/06/2025 11:18 AM EDT
--- OUTSIDE RECORDS SUMMARY | 2024-12-24 07:30 | XMS_ITS | Encounter Summary ---
Author Organization Healthcare Address [address] [place] [address] Care Team Providers Care Dowel Setting Machine Operator Name Role Phone Todd Vidal MD Primary Care Provider Yeyo Petit MD Unavailable Minesh Verduzco MD Unavailable Reason for Visit * Reason Comments Hearing Loss Encounter Details Date Type Department Care Team (Late st Contact Info) Description 12/24/2024 7:30 AM EDT Office Visit [facility] Audiology [address] [place] [address] Jerilyn Valerio, AuD [address] [place] [address] Sensorineural hearing loss (SNHL) of both ears (Primary Dx) Social History Tobacco Use Types Packs/Day Years Used Date Smoking Tobacco: Never Passive Smoke Exposure: Never Smokeless Tobacco: Never Alcohol Use Standard Drinks/Week Comments Not Currently 5 (1 standard drink = 0.6 oz pur e alcohol) 2 beers/ month PHQ-2 Answer Date Recorded Patient Health Questionnaire-2 Score 0 09/26/2024 PHQ-9 Answer Date Recorded Patient Health Questionnaire-9 Score 0 09/26/2024 CAGE ASSESSMENT Answer Date Recorded Cage unable to access Not on file 02/15/2023 Cage max number of drinks Not on file 2022 Cage Beverages a week Not on file 02/15/2023 Have you ever felt you should CUT down on your d rinking? 0 02/15/2023 Have you been ANNOYED by people criticizing your drinking? 0 02/15/2023 Have you felt GUILTY about your drinking? 0 02/15/2023 Have you had a drink first t emir in the morning (EYE-TEST SPECIALIST) to steady your nerves or to get rid of a hangover? 0 02/15/2023 CAGE Questionnaire Score 0 023 PHQ-2A Answer Date Recorded Patient Health Questionnaire-2 Score 0 01/10/2023 Sex and Gender Information Value Date Recorded Sex Assigned at Male 06/18/2024 9:38 AM EST Legal Sex Male 8:24 PM EDT Gender Identity Male 06/18/2024 9:38 AM EST Sexual Orientation Not on file documented as of this encounter Miscellaneous Notes * Progress Notes - Jerilyn Valerio AuD - 12/24/2024 7:30 AM EDT Images from the original note were not included. AUDIOLOGIC EVALUATION Referring Provider: Neil Green MD HISTORY: Javier West Jr. is a 74 y.o. male seen today for an audiologic evaluation. His history is significant for asymmetrical sensorineural hearing loss and occupational noise exposure. Today he reportedconcerns for decreased hearing in the high frequencies. He notes some difficulty hearing his grandson and his but feels that overall he does very well. He denies any tinnitus or dizziness. Thereis a family history of hearing loss, mother. No other significant audiological history or changes were reported. RESULTS: Otoscopy: Non-occluding cerumen bilaterally Audiogram: Method: Conventional Audiometry Transducer: headphones Results: Today's comprehensive audiological evaluation demonstrated normal through 2000 Hz sloping to a severe sensorineural hearing loss bilaterally. Word Recognition: RE: 100%; Excellent LE: 100%; Excellent SRT/Audiogram Agreement: Good Reliability: Good RECOMMENDATIONS: - Patient following up with ENT Monitor hearing and re-evaluate in 1 year Discussed amplification but Mr West is not interested in obtaining amplification at this time Gisella Arredondo, [facility]A Computer Console Operator documented in this encounter Plan of Treatment Upcoming Encounters Date Type Department Care Team (Late st Contact Info) Description 01/30/2025 9:15 AM EDT Appointment [facility] Radiology [address] [place] [address] 01/30/2025 11:00 AM EDT Clinical Support [facility] [address] [place] [address] 01/30/2025 12:30 PM EDT Office Visit [facility] Urology [address] [place] [address] Minesh Verduzco MD [address] [place] [address] 09/25/2025 8:00 AM EDT Office Visit [facility] [place] [address], [address] [place] [address] Boris Roman, DO [address] [place] [address] Scheduled Orders Name Type Priority Associated Diagnoses Orde r Schedule Hearing examination 30 Audiology Routine Sensorineural hearing loss (SNHL) of both ears Expected: 12/24/2025, Expires: 06/25/2026 documented as of this encounter Goals Goal Patient Goal Type Associated Problems Recent Progress Patient-Stated? Author Autogenera nadir Goal Care Plan Autogenerated Problem No Todd Braun MD documented as of this encounter Visit Diagnoses Diagnosis Sensorineural hearing loss (SNHL) of both ears- Primary documented in this encounter Additional Health Concerns Active Problems Noted Date Diagnosed Date Autogenerated Problem 10/17/2024 Assessment Noted Time PHQ-9 Depression Total Score: 0 09/27/19 25 8:29 AM EDT A fall risk assessment has been complete d for the patient 09/26/2024 8:29 AM EDT A Body Mass Index follow-up plan has been documented for the patient 12/24/2024 8:14 AM EDT documented as of this encounter Care Teams Dowel Setting Machine Operator Relationship Specialty Start Date End Date Todd Vidal MD [address] [place] [address] PCP - General 11/13/20 Yeyo Petit MD [address] [place] [address] Surgeon Neurosurgery 11/03/21 Minesh Verduzco MD [address] [place] [address] Surgeon Urology 08/01/24 documented as of this encounter
--- OUTSIDE RECORDS SUMMARY | 2024-12-24 08:00 | XMS_ITS | Encounter Summary ---
Author Organization Healthcare Address [address] [place] [address] Care Team Providers Care Facility Maintenance Technician Name Role Phone Todd Vidal MD Primary Care Provider [phone] Yeyo Petit MD Unavailable Minesh Verduzco MD Unavailable Reason for Visit * Reason Comments Follow-up Encounter Details Date Type Department Care Team (Latest Contact Info) Description 12/24/2024 8:00 AM EDT Office Visit [facility] [address] [place] [address] Neil Green MD [address] [place] [address] Sensorineural hearing loss (SNHL) of both ears (Primary Dx) Social History Tobacco Use Types Packs/Day Years Used Date Smoking Tobacco: Never Passive Smoke Exposure: Never Smokeless Tobacco: Never Tobacco Cessation:Counseling Given: Not Answered Alcohol Use Standard Drinks/Week Comments Not Currently [...] drink first t emir in the 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 (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) to steady your nerves or to get [...] on file documented as of this encounter Last Filed Vital Signs Vital Sign Reading Time Taken Comments Blood Pressure 133/78 12/24/2024 7:56 AM EDT Pulse 72 12/24/2024 7:56 AM EDT Temperature - - Respiratory Rate - - Oxygen Saturation - - Inhaled Oxygen Concentration - - Weight 102 kg (224 lb) 12/24/2024 7:56 AM EDT Height 180.3 cm (5' 11 ) 12/24/2024 7:56 AM EDT Body Mass Index 31.24 12/24/2024 7:56 AM EDT documented in this encounter Miscellaneous Notes * Progress Notes - Neil Green MD - 12/24/2024 8:00 AM EDT I have followed this patient for the past several years for an asymmetric sensorineural hearing loss. About 6 years ago he got an MRI scan that was normal. He has generally done very well but over the last couple of years he is starting to notice that he has a little bit more trouble hearing women's voices and has a little more trouble understanding in the presence of background noise. At this point he does not feel that it is significant enough to consider any hearing aids. On exam his tympanic membranes are normal. His hearing test shows a sloping bilateral sensorineural hearing loss. This slight asymmetry that was present previously is basically gone. His word recognition score remains at 100% bilaterally. I talked to him about the fact that he is getting close to the point where hearing aids are going to be appropriate but right now he does not feel like it is enough of an issue to do that. He did schedule an appointment with audiology to come back in a year and have his hearing repeated. I will seehim back as needed. documented in this encounter Plan of Treatment Upcoming Encounters Date Type Department Care Team (Late st Contact Info) Description 01/30/2025 9:15 AM EDT Appointment [facility] [address] [place] [address] 01/30/2025 11:00 AM EDT Clinical Support [facility] [address] [place] [address] 01/30/2025 12:30 PM EDT Office Visit [facility] Urology [address] [place] [address] Minesh Verduzco MD [address] [place] [address] 09/25/2025 8:00 AM EDT Office Visit [facility] [place] [address] [facility], [address] [place] [address] Boris Roman, DO [address] [place] [address] documented as of this encounter Goals Goal [...] documented as of this encounter Care Teams Facility Maintenance Technician Relationship Specialty Start Date End Date Todd Vidal MD [address] [place] [address] PCP - General 11/13/20 Yeyo Petit MD [address] [place] [address] Surgeon Neurosurgery 11/03/21 Minesh Verduzco MD [address] [place] [address] Surgeon Urology 08/01/24 documented as of this encounter
--- NOTE | 2025-01-06 11:01 | XR_ITS ---
FINAL REPORT CLINICAL HISTORY: ACUTE TRAUMATIC PAIN fall backwards january 01 FINDINGS: 2 views of the chest were obtained . The heart is normal in size. The mediastinum is within normal limits. The lungs are clear. There is no pneumothorax. Osseous structures are unremarkable. IMPRESSION: No acute cardiopulmonary process. Reviewed, Interpreted and Dictated by To Delgado MD Transcribed by Jaz Lopez Authenticated and [facility]
--- NOTE | 2025-01-06 11:01 | XR_ITS ---
FINAL REPORT CLINICAL HISTORY: .fall backward january 01 FINDINGS: RIGHT RIBS 4 views were obtained. There is no acute fracture or dislocation. Visualized joint spaces are normally aligned. Soft tissues are unremarkable. IMPRESSION: No acute bony abnormality. Reviewed, Interpreted and Dictated by To Delgado MD Transcribed by Jaz Lopez Authenticated and [facility]
--- OUTSIDE RECORDS SUMMARY | 2025-01-06 11:19 | XMS_ITS | Encounter Summary ---
Author Organization [facility] Address [address] [place] [address] Care Team Providers Care Technology Lab Teacher Name Role Phone Todd Vidal MD Primary Care Provider [phone] Yeyo Petit MD Unavailable [phone] Minesh Verduzco MD Unavailable Encounter Details Date Type Department Care Team (Late st Contact Info) Description 10/21/2021 Community [facility] [address] [place] [address] JessicaSeema Pamela, EXCAVATING SUPERVISOR [address] [place], [place] [id number] Encounter for screening colonoscopy (Primary Dx) Social History Tobacco Use Types Packs/Day Years Used Date Smoking Tobacco: Never Smokeless Tobacco: Never Alcohol Use Standard Drinks/Week Comments No 0 (1 standard drink = 0.6 oz pure alcohol) Alcoholic Drinks/day: Never Drank Alcohol Sex and Gender Information Value Date Recorded Sex Assigned at Male 06/18/2024 9:38 AM EST Legal Sex Male 8:24 PM EDT Gender Identity Male 06/18/2024 9:38 AM EST Sexual Orientation Not on file documented as of this encounter Plan of Treatment Upcoming Encounters Date Type Department Care Team (Late st Contact Info) Description 01/30/2025 9:15 AM EDT Appointment [facility] Radiology [address] [place] [address] 01/30/2025 11:00 AM EDT Clinical Support [facility] [address], [address] [place] [address] 01/30/2025 12:30 PM EDT Office Visit [facility] [address], [address] [place] [address] Minesh Verduzco MD [address] [place] [address] 09/25/2025 8:00 AM EDT Office Visit [facility] [place] [address] [facility], [address] [place] [address] Boris Roman, DO [address] [place] [address] documented as of this encounter Visit Diagnoses Diagnosis Encounter for screening colonoscopy- Primary documented in this encounter Care Teams Technology Lab Teacher Relationship Specialty Start Date End Date Todd Vidal MD [address] [place] [address] PCP - General 11/13/20 Yeyo Petit MD [address] [place] [address] Surgeon Neurosurgery 11/03/21 Minesh Verduzco MD [address] [place] [address] Surgeon Urology 08/01/24 documented as of this encounter
--- OUTSIDE RECORDS SUMMARY | 2025-01-06 11:19 | XMS_ITS | Encounter Summary ---
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) to steady your nerves or to [...] EDT Appointment [facility] Radiology [address] [place] [address] 01/30/2025 11:00 AM EDT Clinical Support [facility] [address] [place] [address] 01/30/2025 12:30 PM EDT Office Visit [facility] Urology [address], [address] [place] [address] Minesh Verduzco MD [address] [place] [address] 09/25/2025 8:00 AM EDT Office Visit [facility] [place] [address] [facility], [address] [place] [address] Boris Roman, DO [address] [place] [address] documented as of this encounter Goals Goal Patient Goal Type Associated Problems Recent Progress Patient-Stated? Author Autogenera nadir Goal Care Plan Autogenerated Problem No Todd Braun MD documented as of this encounter Visit Diagnoses Not on filedocumented in this encounter Additional Health Concerns Active [...] documented as of this encounter Care Teams Steam Station Supervisor Relationship Specialty Start Date End Date Todd Vidal MD [address] [place] [address] PCP - General 11/13/20 Yeyo Petit MD [address] [place] [address] Surgeon Neurosurgery 11/03/21 Minesh Verduzco MD [address] [place] [address] Surgeon Urology 08/01/24 documented as of this encounter
--- OUTSIDE RECORDS SUMMARY | 2025-01-06 11:19 | XMS_ITS | Clinical Summary ---
Author Organization [facility] Address [address] [place] [place] [address] Care Team Providers Care Table Inspector Name Role Phone Todd Vidal MD Primary Care Provider [phone] Yeyo Petit MD Unavailable [phone] Minesh Verduzco MD Unavailable Allergies No known active allergies Medications atorvastatin (Lipitor) 20 MG tablet Take 1 tablet (20 mg) by mouth nightly. 1 Active citalopram (CeleXA) 40 MG tablet Take 1 tablet (40 mg) by mouth every morning. 1 Active fluticasone (Flonase) 50 MCG/ACT nasal spray Administer 1 spray into each nostril daily as needed for allergies. 4 Active lisinopril 5 MG tablet Take 1 tablet (5 mg) by mouth nightly. 7 Active metFORMIN (Glucophage) 1000 MG tablet Take 1 tablet (1,000 mg) by mouth 2 (two) times a day with meals. 8 Active cetirizine (ZyrTEC) 10 MG tablet Take 1 tablet (10 mg) by mouth every morning. 3 Active Multiple Vitamin (MULTIVITAMINS PO) Take 1 tablet by mouth 1 (one) time each day in the morning. 4 Active Jardiance 25 MG Take 1 tablet (25 mg) by mouth daily. 2 Active albuterol 108 (90 Base) MCG/ACT inhaler 2 puff(s) inhaled every 6 hours as needed for shortness of breath for 30 days 4 Active finasteride (Proscar) 5 MG tablet Take 1 tablet (5 mg) by mouth 1 (one) time each day. Do not crush, chew, or split. 30 tablet 11 4 05/24/20 25 Active Magnesium 500 MG capsule every night. 4 Active Potassium 99 MG tablet every night. 4 Active acetaminophen (Tylenol Extra Strength) 500 MG tablet Take 2 tablets (1,000 mg) by mouth every 8 (eight) hours. 100 tablet 5 Active traMADol (Ultram) 50 MG tablet Take 1 or 2 tablets every 4-6 hours as needed for moderate pain 56 tablet 5 Active Active Problems Problem Noted Date Diagnosed Date Abnormal EKG 09/26/2024 Primary hypertension 09/26/2024 Arthritis of left hip 08/07/2024 Diabetes mellitus 08/01/2024 Keratosis 08/01/2024 Nail dystrophy 08/01/2024 Obesity, Class II, BMI 35-39.9 08/01/2024 Radiculopathy 08/01/2024 Type 2 diabetes mellitus without complication Callus of foot 08/01/2024 Lesion of skin of foot 08/01/2024 Verrucae vulgaris 08/01/2024 Warts of foot 08/01/2024 Primary osteoarthritis of left knee 07/09/2024 History of bladder surgery 06/18/2024 Patellofemoral instability of left knee with carlos n 06/03/2024 Overview (08/01/2024): Continue leg knee pain during walking Arthritis 05/16/2022 Bilateral inguinal hernia 08/02/2019 Sleep apnea 07/31/2019 Umbilical hernia 07/31/2019 Diverticulosis 07/31/2018 Bilateral tinnitus 07/17/2018 Urinary urgency 12/04/2017 Gross hematuria 10/02/2017 Bilateral sensorineural hearing loss 04/13/2017 Cerumen impaction 04/13/2017 Elevated PSA 11/06/2015 Benign prostatic hyperplasia with lower urinary tract symptoms 05/12/2015 Lower urinary tract symptoms (LUTS) 05/12/2015 Enlarged prostate without lo wer urinary tract symptoms (luts) 08/27/2012 Resolved Problems Problem Noted Date Diagnosed Date Resolved Date Acquired equinus deformity of both feet 08/01/2024 09/20/2024 Acquired hammertoes of both feet 08/01/2024 09/20/2024 Localized osteoarthritis of right knee 02/15/2023 08/01/2024 Arthritis of right knee 12/06/202207/05 Overview (12/06/2022): Added automatically from request for surgery [id number] Encounters Date Type Department Care Team Description 12/24/2024 8:00 AM EDT Office Visit [facility] Otolaryngology [address], [address] [place] [address] Neil Green MD Sensorineural hearing loss (SNHL) of both ears (Primary Dx) 12/24/2024 7:30 AM EDT Office Visit [facility] Audiology [address], [address] [place] [address] Jerilyn Valerio AuD Sensorineural hearing loss (SNHL) of both ears (Primary Dx) 12/24/2024 Travel 12/23/2024 Travel 12/17/2024 Travel from Last 3 Months Immunizations Immunization Administration Dates Next Due Hep A, Adult 04/01/2019,06/04/2018 Influenza, High-dose, Split Virus, Trivalent, Injectable, preservative free 05/15/2024,04/01/2019 Influenza, high-dose, quadrivalent 03/14,04/21/2022,04/12/2021,2019 Influenza, injectable, quadrivalent 04/18/2017 Moderna COVID-19 Vaccine (Re d Cap) 12+ years 01/12/2022 ME911 COVID-19 Vac cine (Purple Cap) 12+ 04/12/2021,09/26/2020,09/03/2020 Pneumococcal 20-mesfin Conj Vaccine 01/06/2022 Rsvpref, Recombinant, Protei n Subunit, Adjuvent 08/03/2023 Tdap 08/03/2023 Zoster, Recombinant 04/11/2022,01/06/2022 Family History Medical History Relation Name Comments Irritable bowel syndrome Father TW West Sr Obesity Father TW West Sr Prostate cancer Father TW West Sr Cancer Other Father Anesthesia problems Neg Hx Malig Hyperthermia Neg Hx Relation Name Status Comments Father TW West Sr Other Father Social History Tobacco Use Types Packs/Day Years [...] drink first t emir in the morning (EYE-FAMILY PARTNER) to steady your nerves or to get rid of a hangover? 0 02/15/2023 CAGE Questionnaire Score 0 023 PHQ-2A Answer Date Recorded Patient Health Questionnaire-2 Score 0 01/10/2023 Sex and Gender Information Value Date Recorded Sex Assigned at Male 06/18/2024 9:38 AM EST Legal Sex Male 8:24 PM EDT Gender Identity Male 06/18/2024 9:38 AM EST Sexual Orientation Not on file Last Filed Vital Signs Vital Sign Reading Time Taken Comments Blood Pressure 133/78 12/24/2024 7:56 AM EDT Pulse 72 12/24/2024 7:56 AM EDT Temperature 36.6 C (97.9 F) 09/26/2024 8:20 AM EDT Respiratory Rate 17 09/26/2024 8:20 AM EDT Oxygen Saturation 96% 09/26/2024 8:20 AM EDT Inhaled Oxygen Concentration - - Weight 102 kg (224 lb) 12/24/2024 7:56 AM EDT Height 180.3 cm (5' 11 ) 12/24/2024 7:56 AM EDT Body Mass Index 31.24 12/24/2024 7:56 AM EDT Plan of Treatment Upcoming Encounters Date Type Department Care Team (Late st Contact Info) Description 01/30/2025 9:15 AM EDT Appointment [facility] Radiology [address] [place] [address] 01/30/2025 11:00 AM EDT Clinical Support [facility] [address], [address] [place] [address] 01/30/2025 12:30 PM EDT Office Visit [facility] [address], [address] [place] [address] Minesh Verduzco MD [address] [place] [address] 09/25/2025 8:00 AM EDT Office Visit [facility] [place] [address] [facility], [address] [place] [address] Boris Roman, DO [address] [place] [address] Health Maintenance Due Date Last Done Comments [facility]-Medicare Annual Wellness (AWV) 1950 [facility]-/Child/Adol SDOH Screenings 1950 Diabetes: Dental Exam 1962 [facility]- SDOH Screenings 1970 [facility]-Adult SDOH Screenings 1970 CT Colonography 1997 FIT-DNA 1997 FIT 1997 FOBT 1997 Sigmoidoscopy 1997 [id number] Vaccine ( season) 2024 04/27/2023, 01/12/2022, 04/12/2021, Additional history exists [facility]Diabetes: Hemoglobin A1C 01/06/2025 07/09/2024, 01/23/2023 [facility]-Influenza Vaccine (#1) 03/03/202505/15, 03/14/2023, 04/21/2022, Additional history exists [facility]-Depression Screening 09/26/2025 09/26/2024, 09/01 Colonoscopy 04/01/2032 04/01/2022, 03/31/2022 [facility]-Colorectal Cancer Screening 04/01/2032 [facility]-DTaP,Tdap,and Td Vaccines (2 - Td or Tdap) 08/03/2033 08/03/2023 [facility]-Hepatitis A Vaccines Aged Out 04/01/2019, 08/2017 No longer eligible based on patient's age to complete this topic [facility]-Pneumococcal Vaccine: 50+ Years Completed 01/06/2022 [facility]-Zoster Vaccines Completed 04/11/2022, [facility]-RSV Vaccine: 60+ Years or Completed 08/03/2023 [facility]-Hepatitis C Screening Completed 06/19/2024 [facility]-Obesity Intervention Completed 025, 12/24/2024, 09/26/2024, Additional history exists HPV Vaccines Aged Out No longer eligi ble based on patient's age to complete this topic [facility]-HIB Vaccines Aged Out No longer e ligible based on patient's age to complete this topic [facility]-IPV Vaccines Aged Out No longer e ligible based on patient's age to complete this topic [facility]-Rotavirus Vaccines Aged Out No lo nger eligible based on patient's age to complete this topic Goals Goal Patient Goal Type Associated Problems Recent Progress Patient-Stated? Author Autogenera nadir Goal Care Plan Autogenerated Problem No Todd Braun MD Medical Devices Implanted Type Area Book Jacket Cover Machine Operator Device Identifier Shelf Expiration Date Model / Serial / Lot Lens Lens Bilateral : Eye Cement Palacos Mv - [id number] Implanted:Qty: 4 on 02/15/2023 by Todd Braun MD at [facility] Right: Knee [employer]-[id number] 07/02/2027 [id number] / / [id number] Jrny Ii Bcs Femoral Oxin Rt Sz - [id number] Implanted:Qty: 1 on 02/15/2023 by Todd Braun MD at [facility] Right: Knee [employer]-[id number] 09/09/2032 [id number] / / [id number] Chg Tibial Journeyia Base Client Support Consultant R - [id number] Implanted:Qty: 1 on 02/15/2023 by Todd Braun MD at [facility] Right: Knee [employer]-[id number] 05/28/2032 [id number] / / [id number] Chg Patella Gii Oval Resurfaci - [id number] Implanted:Qty: 1 on 02/15/2023 by Todd Braun MD at [facility] Right: Knee [employer]-[id number] 12/19/2027 [id number] / / [id number] Jrny Ii Bcs Xlpe Art Isrt Sz 7 - [id number] Implanted:Qty: 1 on 02/15/2023 by Todd Braun MD at [facility] Right: Knee [employer]-[id number] 02/21/2026 [id number] / / [id number] Jrny Ii Bcs Femoral Oxin Lt Sz - [id number] Implanted:Qty: 1 on 08/07/2024 by Todd Braun MD at [facility] Left: Knee [employer]-[id number] 03/03/2034 [id number] / / [id number] Jrny Ii Bcs Xlpe Art Isrt Sz 7 - [id number] Implanted:Qty: 1 on 08/07/2024 by Todd Braun MD at [facility] Left: Knee [employer]-[id number] 05/15/2026 [id number] / / [id number] Cement Palacos Mv - [id number] Implanted:Qty: 3 on 08/07/2024 by Todd Braun MD at [facility] Left: Knee [employer]-[id number] 09/30/2028 [id number] / / [id number] Chg Patella Gii Oval Resurfaci - [id number] Implanted:Qty: 1 on 08/07/2024 by Todd Braun MD at [facility] Left: Knee [employer]-[id number] 10/08/2032 [id number] / / [id number] Chg Tibial Journeyia Base Client Support Consultant L - [id number] Implanted:Qty: 1 on 08/07/2024 by Todd Braun MD at [facility] Left: Knee [employer]-[id number] 04/14/2033 [id number] / / [id number] Explanted Type Area Book Jacket Cover Machine Operator Device Identifier Shelf Expiration Date Model / Serial / Lot Jrny Ii Bcs Xlpe Art Isrt Sz 7 - [id number] Explanted:Qty: 1 on 08/07/2024 at [facility] Left: Knee [employer]-[id number] 01/06/2034 [id number] / / [id number] Procedures Procedure Name Priority Date/Time Associated Diagnosis Comments HEMOGLOBIN A1C Routine 07/09/2024 10:19 AM EST Left knee pain, unspecified chronicity Primary osteoarthritis of left knee Abnormal finding of blood chemistry, unspecified HEPATITIS C ANTIBODY - ED W/REFLEX TO HCV QUANT PCR STAT 06/19/2024 12:00 AM EST COLONOSCOPY Routine 04/01/2022 9:28 AM EDT Encounter for screening for malignant neoplasm of colon from Last 3 Months or Most Recently Relevant to Health Maintenance Results * (ABNORMAL) Hemoglobin A1c (07/09/2024 10:19 AM EST) Hemoglobin A1c 6.7(H) <5.7 % 07/09/2024 1:49 PM EST [facility] Blood Venous blood specimen / Unknown Venipuncture / Unknown 07/09/2024 10:19 AM EST 07/09/2024 10:19 AM EST Narrative [facility] - 07/09/2024 1:49 PM EST HA1C Interpretive Data: Diagnosis of Diabetes: Diabetic > or = 6.5% Pre-diabetic 5.7 to 6.4% Non-diabetic < or = 5.6% Glycemic Targets for Type I and Type II Diabetics: Non- Adults <7.0% Adults <6.0% Children and Adolescents <7.5% Source: [place] [employer]. Standards of medical care in diabetes,2017. Diabetes Care.2017:40 (suppl 1):S1-S135. HbA1c assay performed by an ion-exchange chromatography method that is certified traceable to the DCCT. us Todd Braun MD LAB BLOOD ORDERABLES Final R esult Performing Organization Address City/[facility] Co de Phone Number [facility] [address] [place] [address] * Hepatitis C Antibody - ED (06/19/2024 12:00 AM EST) Hepatitis C Antibody Negative Negative 06/19/2024 12:43 AM EST [facility] Blood Venous blood specimen / Unknown Venipuncture / Unknown 06/19/2024 12:00 AM EST 06/19/2024 12:11 AM EST Mata Castrejon MD LAB BLOOD ORDERABLES Final Resu lt Performing Organization Address [facility] de Phone Number [facility] [address] [place] [address] * Colonoscopy (04/01/2022 9:28 AM EDT) Anatomical Region Laterality Modality Endoscopy Narrative 04/01/2022 9:35 AM EDT Table formatting from the original result was not included. Impression Overall Impression: - Single small polyp removed in sigmoid colon. - Mild diverticulosis. - Hemorrhoids Recommendation Await pathology results Repeat colonoscopy in 7 years Follow up with PCP Indication Personal History Polyps Medications See anesthesia record for anesthesia administered medications. Staff Staff Role Amelia Richard Endo Nurse ORVILLE Murcia CRNA, MD No role selected Stefani Levy MD Anesthesiologist Cheryl Marquez Endo Nurse Az Hutchison MD Proceduralist Unknown Endo Nurse 1 Endo Nurse Preprocedure A history and physical has been performed, and patient medication allergies have been reviewed. The patient's tolerance of previous anesthesia has been reviewed. The risks and benefits of the procedure and the sedation options and risks were discussed with the patient. All questions were answered and informed consent obtained. Details of the Procedure The patient underwent monitored anesthesia care, which was administered by an anesthesia professional. The patient's blood pressure, heart rate, level of consciousness, respirations and oxygen were monitored throughout the procedure. A digital rectal exam was performed. A perianal exam was performed. The scope was introduced through the anus and advanced to the terminal ileum. Retroflexion was performed in the rectum. The quality of bowel preparation was evaluated using the [place] Bowel Preparation Scale with scores of: right colon = 2, transverse colon = 2, left colon = 2. The total BBPS score was 6. Bowel prep was adequate. The patient experienced no blood loss. The procedure was not difficult. The patient tolerated the procedure well. There were no apparent complications. Attestation I was present for the entire procedure Events Procedure Events Event Event Time ENDO SCOPE IN TIME 04/01/2022 8:36 AM ENDO CECUM REACHED 04/01/2022 8:43 AM ENDO SCOPE OUT TIME 04/01/2022 9:26 AM Specimens ID Type Source Tests Collected by Time A : Rectal polyp Tissue Rectum SURGICAL PATHOLOGY EXAM Az Hutchison MD 04/01/2022 0923 Findings Medium, external hemorrhoids observed during digital rectal exam One 4 mm sessile polyp in the sigmoid colon; completely removed en bloc by cold snare and retrieved specimen Few small diverticula in the sigmoid colon The remainder of the colon was unremarkable on both forward and retroflexed (in rectum) views. 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 Yes * Full Code Date Activated Date Inactivated Comments 02/15/2023 12:28 PM 02/16/2023 4:25 PM Question Answer Comments Patient has decision-making capacity? Yes Care Teams Table Inspector Relationship Specialty Start Date End Date Todd Vidal MD [address] [place], [place] [address] PCP - General 11/13/20 Yeyo Petit MD [address] [place] [address] Surgeon Neurosurgery 11/03/21 Minesh Verduzco MD [address] [place] [address] Surgeon Urology 08/01/24
--- OUTSIDE RECORDS SUMMARY | 2025-01-06 11:19 | XMS_ITS | Patient Health Record ---
Author Organization [facility] Address [address] [place] [address] Care Team Providers Care Jewelry Bench Worker Name Role Phone Todd Vidal Primary Care Provider [phone] Jessica Seema Unavailable [phone] Troy Seema Unavailable [phone] Migration, Provider Unavailable Unavailable Allergies No Known Allergies Results Component Value Reference Range Notes CULTURE, URINE, ROUTINE (395 ) Reviewed date:07/04/2024 10:38:31 AM Interpretation: Performing Lab:[facility] [id number], [place] Cornelius Herrera Notes/Report: NON-FASTING CULTURE, URINE, ROUTINE SEE NOTE CULTURE, URINE, ROUTINE Micro Number: [id number] Test Status: Final Specimen Source: Urine Specimen Quality: Adequate Result: Mixed genital shilpi isolated. These superficial bacteria are not indicative of a urinary tract infection. No further organism identification is warranted on this specimen. If clinically indicated, recollect clean-catch, mid-stream urine and transfer immediately to Urine Culture Transport Tube. Urinalysis Reviewed date:07/02/2024 01:03:47 PM Interpretation: Performing Lab: Notes/Report: Color/Clarity yellow Leuk neg Nitrite neg Urobili 0.2 Protein 30mg pH 5.5 Ketone neg Bili neg Glucose 500mg PSA, TOTAL (5363) Reviewed date:06/10/2024 11:13:35 AM Interpretation: Performing Lab:[facility] [id number], [place] Cornelius Herrera Notes/Report: NON-FASTING; NON-FASTING PSA, TOTAL 5.93 < OR = 4.00 ng/mL The total PSA value from this assay system is standardized against the WHO standard. The test result will be approximately 20% lower when compared to the equimolar-standardized total PSA (Winifred Heike). Comparison of serial PSA results should be interpreted with this fact in mind. This test was performed using the Siemens chemiluminescent method. Values obtained from different assay methods cannot be used interchangeably. PSA levels, regardless of value, should not be interpreted as absolute evidence of the presence or absence of disease. BASIC METABOLIC PANEL (40429 ) Reviewed date:06/10/2024 11:13:35 AM Interpretation: Performing Lab:[facility], [facility] [id number] [facility] [place] [facility] Cornelius Herrera Notes/Report: NON-FASTING; NON-FASTING GLUCOSE 128 65-99 mg/dL Fasting reference interval For someone without known diabetes, a glucose value >125 mg/dL indicates that they may have diabetes and this should be confirmed with a follow-up test. UREA NITROGEN (BUN) 25 7-25 mg/dL CREATININE 1.24 0.70-1.28 mg/dL EGFR 62 > OR = 60 mL/min/1.73m2 BUN/CREATININE RATIO SEE NOTE: 6-22 (calc) Not Reported: BUN and Creatinine are within reference range. SODIUM 139 135-146 mmol/L POTASSIUM 4.5 3.5-5.3 mmol/L CHLORIDE 102 98-110 mmol/L CARBON DIOXIDE 28 20-32 mmol/L CALCIUM 9.8 8.6-10.3 mg/dL Medications Medication SIG (Take, Route, Frequency, Duration) Notes Start Date End Date Status Potassium 99 TAKE 1 TABLET ORAL ONCE A DAY; Duration: 30 DAYS *Please review and pick correct strength-formulati on from [employer] options. If intended option is not shown, discontinue and re-order from Quick Search* 06/04/2024 Active Magnesium 400MG 1 TABLET ONCE A DAY *Please review and pick correct strength-formulati on from [employer] options. If intended option is not shown, discontinue and re-order from Quick Search* 06/04/2024 Active Cyclobenzaprine HCl 10 MG 1 tab(s) orally 2 times a day as needed for muscle spasm; Duration: 14 days Active GLUCOMETER NA - ONCE A DAY DIRECTED *Please review for potential replacement for e-prescription and drug interaction check* 08/16/2021 Active Jardiance 25 MG 1 tab(s) orally once a day (in the morning); Duration: 90 days Active Multivitamin MULTIPLE VITAMINS 1 CAP(S) ORALLY ONCE A DAY *Please review and pick correct strength-formulati on from [employer] options. If intended option is not shown, discontinue and re-order from Quick Search* Active Albuterol Sulfate HFA 108 (90 Base) MCG/ACT 2 puff as needed Inhalation every 6 hours PRN; Duration: 30 days Active ZyrTEC Allergy 10 MG 1 tab(s) orally qd Active metFORMIN HCl 1000 MG 1 tab(s) orally 2 times a day; Duration: 90 days Active Diclofenac Sodium 75 MG 1 tab(s) orally 2 times a day Active Atorvastatin Calcium 20 MG 1 tab(s) orally once a day; Duration: 90 days Active Lisinopril 5 MG 1 tab(s) orally once a day; Duration: 90 days Active Citalopram Hydrobromide 40 MG 1 tab(s) orally once a day; Duration: 90 days Active Nitrofurantoin Macrocrystal 100 MG 1 cap(s) orally 2 times a day; Duration: 7 days 07/02/2024 Active Tamsulosin HCl 0.4 MG 1 cap(s) orally once a day; Duration: 30 day(s) 07/02/2024 Active Immunizations Vaccine Route Administration Date Status Comme nts Arexvy ID Intradermal 08/03/2023 Administered Boostrix IM Intramuscular 08/03/2023 Administered Covid Pfizer Unknown 09/03/2020 Administered Covid Pfizer Unknown 09/26/2020 Administered Covid Pfizer Unknown 04/12/2021 Administered Fluzone High Dose IM Intramuscular 03/18/2020 Administered Lot # [id number] Hep A Adult 2 Dose IM Intramuscular 06/04/2018 Administere d Hep A Adult 2 Dose IM Intramuscular 04/01/2019 Administere d Influenza-Fluzone 3+years (NON-MEDICARE) IM Intramuscular 04/07/2015 Administered Influenza-Fluzone 3+years (NON-MEDICARE) IM Intramuscular 04/18/2017 Administered Pneumovax 23 IM Intramuscular 06/06/2016 Administered Prevnar PCV-13 (Pneumococcal conjugate 13) IM Intramuscular 04/07/2015 Administered Prevnar PCV-20 (Pneumococcal conjugate 20) Unknown 01/06/2022 Administered Problems Problem Type SNOMED Code ICD Code Onset Dates Problem Status W/U Status Risk Notes Problem Hyperlipidemia due to type 2 diabetes mellitus (disorder) (389339639952074) Hyperlipidemia associated with type 2 diabetes mellitus (E11.69) Active confirmed Problem Type II diabetes mellitus without complication (226437695) Diabetes mellitus type 2, noninsulin dependent (E11.9) Active confirmed Problem Tubular adenoma of colon (351696193) Tubular adenoma of colon (D12.6) Active confirmed Problem BMI 30+ - obesity (218263497) BMI 32.0-32.9,adult (Z68.32) Active confirmed Problem Ptosis of eyelid (04999679) Ptosis of eyelid, bilateral (H02.403) Active confirmed Problem Skin sensation disturbance (36440284) Paresthesia of right foot (R20.2) Active confirmed Problem Obese class II (979260875458189) BMI 36.0-36.9,adult (Z68.36) Active confirmed Problem Sciatica (91131743) Left sided sciatica (M54.32) Active confirmed Problem History of nephrolithiasis (766067221) History of nephrolithiasis (Z87.442) Active confirmed Problem Obstructive sleep apnea syndrome (79360498) LISA (obstructive sleep apnea) (G47.33) Active confirmed Problem Generalized anxiety disorder (12793108) CARISA (generalized anxiety disorder) (F41.1) Active confirmed Problem Degeneration of lumbar intervertebral disc (77401472) Lumbar degenerative disc disease (M51.36) Active confirmed Problem Obese class II (831523508997520) BMI 35.0-35.9,adult (Z68.35) Active confirmed Problem Benign prostatic hypertrophy without outflow obstruction (573024472) BPH without urinary obstruction (N40.0) Active confirmed Problem Gastroesophageal reflux disease (disorder) (652736849) Chronic GERD (K21.9) Active confirmed Problem Elevated PSA (418872731) Elevated PSA (R97.20) Active confirmed Problem Obese class II (finding) (139960363314740) Class 2 obesity (E66.9) Active confirmed Vital Signs Heart Rate 76 /min 01/06/2025 Temperature 98.0 degrees Fahrenheit 01/06/2025 Blood pressure diastolic 78 mm Hg 01/06/2025 Height 5 ft 10 in in 01/06/2025 Blood pressure systolic 124 mm Hg 01/06/2025 Weight 227.8 lbs 01/06/2025 BMI 32.68 kg/m2 01/06/2025 Encounters Encounter Location Date Provider Diagnosis [facility] [address] [facility] [address] [place] [address] 06/06/2024 Todd Vidal [facility] [address] [facility] [address] [place] [address] 10/05/2024 Provider Migration [facility] [address] [facility] [address] [place] [address] 01/06/2025 Seema Lopez Contusion of right chest wall, initial encounter S20.211A and Acute traumatic pain G89.11 [facility] [address] [facility] [address] [place] [address] 02/22/2024 Seema Lopez COVID-19 U07.1 and D OE (dyspnea on exertion) R06.09 [facility] [address] [facility] [address] [place] [address] 06/03/2024 Seema Lopez Gross hematuria R31. 0 ; Hydronephrosis, left N13.30 and Paresthesia of right foot R20.2 [facility] [address] [facility] [address] [place] [address] 07/02/2024 Seema Woodrow BPH without urinary obstruction N40.0 and Dysuria R30.0 [facility] [address] [facility] [address] [place] [address] 08/05/2024 Seema Lopez Diabetes mellitus ty pe 2, noninsulin dependent E11.9 ; Medicare annual wellness visit, subsequent Z00.00 ; Hyperlipidemia associated with type 2 diabetes mellitus E11.69 ; LISA (obstructive sleep apnea) G47.33 ; Chronic GERD K21.9 ; CARISA (generalized anxiety disorder) F41.1 and BMI 32.0-32.9,adult Z68.32 [facility] [address] [facility] [address] [place] [address] 01/06/2025 Seema Jessica [facility] [address] [place] [address] 02/12/2024 Todd Besson [facility] [address] [place] [address] 05/14/2024 Seema Jessica [facility] [address] [place] [address] 05/28/2024 Todd Besson [facility] [address] [place] [address] 06/04/2024 Todd Besson [facility] [address] [place] [address] 06/06/2024 Otdd Besson Elevated PSA R97.20 [facility] [address] [place] [address] 06/20/2024 Todd Besson [facility] [address] [place] [address] 07/01/2024 Todd Besson [facility] [address] [place] [address] 07/24/2024 Todd Besson [facility] [address] [place] [address] 08/13/2024 Todd Besson Assessments Encounter Date Diagnosis (ICD Code) Assessment Notes Treatment Notes Treatment Clinical Notes Section Notes 02/22/2024 BACON (dyspnea on exertion) (ICD-10 - R06.09) reports chronic, recurring symptoms that is worse in the heat and dry weather. requesting albuterol inhaler which is reasonable but if he gets no significant relief or this is an ongoing/progress isha problem we discussed additional workup including PFTs, CXR, possibly echo 02/22/2024 COVID-19 (ICD-10 - U07.1) 06/03/2024 Gross hematuria (ICD-10 - R31.0) ED records reviewed, appropriate FU already arranged 06/03/2024 Hydronephrosis, left (ICD-10 - N13.30) 06/06/2024 Elevated PSA (ICD-10 - R97.20) 07/02/2024 Dysuria (ICD-10 - R30.0) Certainly his hematuria could be due to trauma from mckoy removal and his procedures in [place]. With symptoms of dysuria, will proceed with treatment while awaiting culture results. Start antibiotic for presumed UTI based on symptoms/UA results as stated above. Will follow urine culture for growth and anti-microbial sensitivities. Encouraged patient to drink plenty of fluids & stay well hydrated. Discussed return precautions to clinic/ED including fever, vomiting, new worsening abdominal or back pain, or if symptoms do not improve in 1-2 days. Patient voices understanding and is agreeable to the plan of care above. 07/02/2024 BPH without urinary obstruction (ICD-10 - N40.0) ED records reviewed. Patient requesting refill as he just ran out today. Will refill, but discussed if he becomes dizzy or light headed then he will need to stop it. Keep follow-up with Urology. 08/05/2024 Diabetes mellitus type 2, noninsulin dependent (ICD-10 - E11.9) well controlled, Continue dietary and exercise efforts as well. will need A1C and urine microalbumin again in 6 months. 01/06/2025 Contusion of right chest wall, initial encounter (ICD-10 - S20.211A) 01/06/2025 Acute traumatic pain (ICD-10 - G89.11) 08/05/2024 Medicare annual wellness visit, subsequent (ICD-10 - Z00.00) UTD on screening exams and vaccinations, compliant with specialty FU. No new concerns about cognition, fall risk, etc 06/03/2024 Paresthesia of right foot (ICD-10 - R20.2) discussed possible neuropathy vs other pathology...wel l fitting shoes and watchful waiting encouraged 08/05/2024 Hyperlipidemia associated with type 2 diabetes mellitus (ICD-10 - E11.69) Continue statin therapy 08/05/2024 LISA (obstructive sleep apnea) (ICD-10 - G47.33) Continue CPAP, follows with Dr. Pena. 08/05/2024 Chronic GERD (ICD-10 - K21.9) stable 08/05/2024 CARISA (generalized anxiety disorder) (ICD-10 - F41.1) Continue citalopram 08/05/2024 BMI 32.0-32.9,adult (ICD-10 - Z68.32) Complicates all aspects of care, stable over the past year after some initial weight loss, hopefully this will continue following his next knee replacement and increased activity level Plan Of Treatment Pending Test Test Name Order Date X ray : Chest 01/06/2025 X ray : Rib Series, Right 01/06/2025 Colonoscopy 11/04/2021 Colonoscopy 12/23/2021 EKG : In House 09/25/2017 Physical Therapy 09/10/2018 N-Percent Free PSA 07/28/2006 H-LIVER PANEL 12/15/2008 H-PSA SCREEN 07/07/2014 H-PSA SCREEN 02/15/2012 H-PSA, FREE 05/05/2014 H-PSA, FREE 05/05/2014 H-CAT SCRATCH PANEL 09/25/2017 C-LIPID PANEL 01/07/2009 H-ASO Titer 02/14/2012 Urine Culture, Routine 02/09/2012 NVC/EMG STUDY OF LOWER EXTREMITIES 06/10 MRI : Lumbar Spine with & without 2021 M-Complete Blood Count Auto Diff 022 M-Comprehensive Metabolic Panel 05/02/20 22 M-Comprehensive Metabolic Panel 06/04/20 18 M-Comprehensive Metabolic Panel 03/22/20 19 M-Hemoglobin A1C 03/22/2019 M-Hemoglobin A1C 06/04/2018 M-Hemoglobin A1C 05/02/2022 M-Lipid Panel 05/02/2022 M-Lipid Panel 06/04/2018 M-Lipid Panel 03/22/2019 M-Prostate Specific Ag Screen 04/08/2019 M-Prostate Specific Ag Screen 01/25/2021 M-Prostate Specific Ag Screen 05/02/2022 M-Thyroid Stimulating Hormone 03/22/2019 M-Microalb/Creat Ratio, [facility] Ur 019 M-Microalb/Creat Ratio, [facility] Ur 020 M-Microalb/Creat Ratio, [facility] Ur 021 M-Microalb/Creat Ratio, [facility] Ur 022 M-Microalb/Creat Ratio, [facility] Ur 018 Future Test Test Name Order Date H-CMP 05/01/2014 H-HGBA1C 05/01/2014 H-CMP 08/02/2014 H-HGBA1C 08/02/2014 Insurance Providers Payer Name Payer Address Payer Phone Subscriber Number Group Number Insured Name Patient Relationship to Insured Coverage Start Date Coverage End Date MEDICARE PART B [address] [place] [phone] [id number] Javier [place] Self - patient is the insured [employer] [address] [address] [place] [address] [id number] Brett Javier Self - patient is the insured [employer] [address] [facility] [address] [place] [address] ACL Brett Javier Self - patient is the insured Medications Administered Medication Instructions Date of Administration Dosage Notes Kenalog 11/18/2015 1 mL Medical (General) History Medical History History ICD Code Anxiety disorder BPH Allergies Tubular Adenoma with no sharon gnancy - colonoscopy 05/2005 - Repeat c-scope 2015 with tubular adenoma Esophageal reflux fx rt mandible sleep apnea-cpap Type II DM - diagnosed March 2014 diverticulosis Knee arthritis Lumbar DDD Surgical History Surgery Date(Month/Year) left shoulder rotator cuff repair-torn b icep 06/2007 colonoscopy benign tubular adenoma 2004 lithotripsy-bladder stones 06/2012 cyst removal -left chest heart brqv-ipprzj-nddr kelly 2001 prostate surgery 06/2015 bilateral eyelild surgery 07/2015 skin cancer removed off of face 2015 skin cancer removed from face 10/2016 bladder surgery for stones/prostate scra ped 10/2017 hernia surgery 08/2019 bladder stones 08/2020 colonoscopy 04/2022 rt knee total replacement 01/2023 squamous cell removal from neck 07/2023 partial prostate removal 06/2024 Lt Knee Total Replacement 08/07/24 Hospitalization History Reason Date(Month/Year) rt knee total replacement 01/2023 bladder surgery for stones/prostate scra ped 10/2017 abd pain/gallstones
--- OUTSIDE RECORDS SUMMARY | 2025-01-06 11:19 | XMS_ITS | Encounter Summary ---
Author Organization Healthcare Address [address] [place] [address] Care Team Providers Care Chef Teacher Name Role Phone Todd Vidal MD Primary Care Provider [phone] Yeyo Petit MD Unavailable [phone] Minesh Verduzco MD Unavailable Encounter Details Date Type Department Care Team (Late st Contact Info) Description 12/08/2022 Community [facility] [address] [place] [address] Yolanda Pena MD [address] [place] [address] Obstructive sleep apnea (adult) (pediatric) (Primary Dx) Social History Tobacco Use Types [...] EDT Appointment [facility] [address] [place] [address] 01/30/2025 11:00 AM EDT [facility] [address] [place] [address] 01/30/2025 12:30 PM EDT [facility] [address], [address] [place] [address] Miensh Verduzco MD [address] [place] [address] 09/25/2025 8:00 AM EDT Office Visit [facility] [place] [address] [facility], [address] [place] [address] Boris Roman, DO [address] [place] [address] documented as of this encounter Visit Diagnoses Diagnosis Obstructive sleep apnea (adult) (pediatric)- Primary documented in this encounter Additional Health Concerns Assessment Noted Time A fall risk assessment has been complete d for the patient 12/06/2022 1:29 PM EDT A Body Mass Index follow-up plan has been documented for the patient 12/06/2022 2:18 PM EDT documented as of this encounter Care Teams Chef Teacher Relationship Specialty Start Date End Date Todd Vidal MD [address] [place] [address] PCP - General 11/13/20 Yeyo Petit MD [address] [place] [address] Surgeon Neurosurgery 11/03/21 Minesh Verduzco MD [address] [place] [address] Surgeon Urology 08/01/24 documented as of this encounter
--- OUTSIDE RECORDS SUMMARY | 2025-01-06 11:19 | XMS_ITS | Encounter Summary ---
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) to steady your nerves or to get [...] EDT Appointment [facility] [address] [place] [address] 01/30/2025 11:00 AM EDT Clinical Support [facility] [address] [place] [address] 01/30/2025 12:30 PM EDT Office Visit [facility] [address] [place] [address] Minesh Verduzco MD [address] [place] [address] 09/25/2025 8:00 AM EDT Office Visit [facility] [address] [facility], [address] [place] [address] Boris Roman, DO [address] [place] [address] documented as of this encounter Goals Goal [...] plan has been documented for the patient 09/26/2024 1:08 PM EDT documented as of this encounter Care Teams Flight Mechanic Relationship Specialty Start Date End Date Todd Vidal MD [address] [place] [address] PCP - General 11/13/20 Yeyo Petit MD [address] [place] [address] Surgeon Neurosurgery 11/03/21 Minesh Verduzco MD [address] [place] [address] Surgeon Urology 08/01/24 documented as of this encounter
--- OUTSIDE RECORDS SUMMARY | 2025-01-06 11:19 | XMS_ITS | Encounter Summary ---
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, [address] [place] [address] Boris Roman, DO [address] [place] [address] documented as of this encounter Goals Goal [...] documented as of this encounter Care Teams Well Driller Helper Relationship Specialty Start Date End Date Todd Vidal MD [address] [place] [address] PCP - General 11/13/20 Yeyo Petit MD [address] [place] [address] Surgeon Neurosurgery 11/03/21 Minesh Verduzco MD [address] [place] [address] Surgeon Urology 08/01/24 documented as of this encounter
== END 2025-01-06 23:59 | disposition home or self-care (01) ==
LOC: RAD 10:53
PROVIDERS: PCP Internal Medicine Adolescent Medicine; Visit Provider Nurse Practitioner Family
DX: S20.211A Contusion of right front wall of thorax, initial encounter (principal); G89.11 Acute pain due to trauma
CPT/HCPCS: 71046; 71100